=== PATIENT | male | born 1970 | race Two or more races ===

== ENCOUNTER 2020-11-25 18:25 | Emergency (ER) | payer BC, OTHER ==
[2020-11-25 19:18] LABS: Absolute Lymphocytes (CBC) 1.7 K/uL (0.7-4.9); Basophils % 0.8 % (0-1.3); Hematocrit 36.7 % (39.6-49.0); Lymphocytes % 27.8 % (15.3-44.8); MPV 7.4 fL (7.6-11.3); RBC Red Blood Cell Count 4.28 M/uL (4.33-5.43)
[2020-11-25 19:22] LABS: Protime INR 0.94
[2020-11-25 19:29] LABS: Albumin 3.5 g/dL (3.4-5.0); Bilirubin Direct 0.1 mg/dL (0-0.2); Bilirubin Total 0.4 mg/dL (0.2-1.0); Potassium 3.7 mmol/L (3.5-5.1); Protein, Total 7.5 g/dL (6.4-8.2)
[2020-11-25 19:47] LABS: Magnesium 2.1 mg/dL (1.8-2.4); Troponin I < 0.02 ng/mL (0.0-0.045)
[2020-11-25] MEDS ORDERED: NA CHLORIDE 0.9% 1,000 ML ONE ×2 (20:01→22:45)
[2020-11-25] MEDS ORDERED: CIPROFLOXACIN 400mg IV 400 MG/200 ML BAG IV ONE (21:59)
[2020-11-25] MEDS ORDERED: METRONIDAZOLE 500mg IVPB 500 MG/100 ML BAG IV ONE (21:59)
[2020-11-25] MEDS ORDERED: CEFTRIAXONE/SWI 1gm 1 GM/10 ML SYR ONE (22:45)
[2020-11-25 23:14] LABS: Hematocrit 28.6 % (39.6-49.0)
--- NOTE | 2020-11-26 00:20 | ER ---
Nurse's Notes [facility] Name: Heide Harris Age: 49 yrs Sex: Male : 1970 Arrival Date: 11/25/2020 Time: 18:25 Bed 20 Private MD: Diagnosis: GI Bleed/ Gastrointestinal hemorrhage, unspecified;SARS-associated coronavirus as the cause of diseases classified elsewhere Presentation: 11/25 18:38 Chief complaint: Patient states: 3 or 4 episodes of blood stool today. Denies pain, ss N/V. Coronavirus screen: Client denies travel out of the [place] in the last 14 days. Ebola Screen: Patient denies exposure to infectious person. Patient denies travel to an Ebola-affected area in the 21 days before illness onset. Initial Sepsis Screen: Does the patient meet any 2 criteria? No. Patient's initial sepsis screen is negative. Does the patient have a suspected source of infection? No. Patient's initial sepsis screen is negative. Risk Assessment: Do you want to hurt yourself or someone else? Patient reports no desire to harm self or others. Onset of symptoms was November 25, 2020. 18:38 Method Of Arrival: Ambulatory ss 18:38 Acuity: YG 2 ss 22:53 Note Pt voided 300 ml liquid dark brown stool. iv antibiotic infusion with NS bolus. Pt lp1 denies pain. No distress noted at this time. Awaiting transfer. Historical: - Allergies: 21:59 Ciprofloxacin; lp1 21:59 Cipro IV; lp1 - Home Meds: 18:39 None [Active]; ss - PMHx: 18:39 None; ss - PSHx: 18:39 None; ss - Immunization history:: Client reports having NOT received the Covid vaccine. - Social history:: Smoking status: Patient denies any tobacco usage or history of. Screenin:41 Abuse screen: Denies threats or abuse. Nutritional screening: No deficits noted. ll1 Tuberculosis screening: No symptoms or risk factors identified. Fall Risk IV access (20 points). Gait- Weak (10 pts.). Total Hawk Fall Scale indicates Low Risk Score (25-44 pts). Fall prevention measures have been instituted. Side Rails Up X 2 Frequent Obs/Assesments occuring As available Patient and Family Educated on Fall Prevention Program and strategies. Assessment: 18:42 General: Appears in no apparent distress. Behavior is calm, cooperative, appropriate ll1 for age. Pain: Denies pain. Neuro: No deficits noted. Cardiovascular: No deficits noted. Respiratory: No deficits noted. GI: Abdomen is flat, Bowel sounds present X 4 quads. Abd is soft and non tender X 4 quads. Reports rectal bleeding, bloody stool. 20:23 Reassessment: No changes from previously documented assessment. Patient and/or family lp1 updated on plan of care and expected duration. Pain level reassessed. Patient is alert, oriented x 3, equal unlabored respirations, skin warm/dry/pink. Pt resting quietly in bed. Spouse at bedside. No distress noted. Awaiting CT scan. Contrast completed. Pt had 1 liquid BM approx 200ml. Positive for occult. 11/26 02:25 GI: No deficits noted. Abd is soft Abd is non tender Patient currently denies episode lp1 of liquid dark brown stool noted. 300ml's output. Pt denies pain/N/V. 04:09 Reassessment: See blood administration flow sheet for vitals. lp1 Vital Signs: 11/25 18:38 BP 114 / 89; Pulse 140; Resp 17; Temp 98.8(O); Pulse Ox 100% on R/A; Weight 71.21 kg; ss Height 5 ft. 7 in. (170.18 cm); Pain 0/10; 20:18 BP 113 / 84; Pulse 120; Resp 22; Pulse Ox 98% on R/A; lp1 21:30 BP 115 / 80; Pulse 119; Resp 22; Pulse Ox 98% on R/A; lp1 22:52 BP 100 / 69; Pulse 112; Resp 20; Pulse Ox 99% on R/A; lp1 23:45 BP 102 / 74; Pulse 102; Resp 20; Pulse Ox 99% on R/A; lp1 11/26 01:00 BP 104 / 75; Pulse 102; Resp 22; Pulse Ox 99% on R/A; lp1 01:00 BP 107 / 70; Pulse 106; Resp 20; Pulse Ox 99% on R/A; lp1 01:30 BP 104 / 74; Pulse 103; Resp 18; Pulse Ox 99% on R/A; lp1 02:18 BP 109 / 74; Pulse 99; Resp 18; Pulse Ox 99% on R/A; lp1 02:54 BP 111 / 70; Pulse 91; Resp 20; Pulse Ox 98% on R/A; lp1 04:08 BP 99 / 72; Pulse 90; Resp 18; Pulse Ox 99% on R/A; lp1 05:57 BP 111 / 96; Pulse 84; Resp 18; Pulse Ox 98% on R/A; lp1 11/25 18:38 Body Mass Index 24.59 (71.21 kg, 170.18 cm) ED Course: 11/25 18:25 Patient arrived in ED. am2 18:39 Triage completed. ss 18:39 Arm band placed on right wrist. ss 18:40 Kirk Gomez, RN is Primary Nurse. ll1 18:40 Patient placed in an exam room, on a stretcher. ll1 18:41 Patient has correct armband on for positive identification. Bed in low position. Call ll1 light in reach. Side rails up X 1. Pulse ox on. NIBP on. 18:46 Johan Eckert PA is PHCP. cp 18:46 Christiano Tobar MD is Attending Physician. cp 18:50 Blood band [id number]. Inserted saline lock: 20 gauge in right antecubital area, using ll1 aseptic technique. Blood collected. 21:39 Primary Nurse role handed off by Kirk Gomez, JONAH tt3 21:57 Carla Fields, JONAH is Primary Nurse. lp1 22:11 CT Abd/Pelvis - PO and IV Contrast In Process Unspecified. EDMS 11/26 00:[address] [facility] with Rachel Venegas. tt3 00:25 Rachel called back with their GI physician to speak with ELOISA Paul, pt provider tt3 regarding the transfer request. 00:41 Inserted saline lock: 20 gauge in left antecubital area, using aseptic technique. lp1 00:50 Arlin Young called back with Dr. Fuentes to speak with ELOISA Paul, tt3 provider of pt regarding the transfer request. 00:53 Inserted saline lock: 20 gauge in right antecubital area, using aseptic technique. lp1 01:19 Sterling Webb MD is Attending Physician. cp 02:49 Inserted saline lock: 20 gauge in left forearm, using aseptic technique. lp1 04:43 Called to update Rachel on lab results. tt3 04:53 Rachel called back with the hospitalist for consultation. tt3 05:04 Rachel Venegas called back with admin approval. The pt is going to [facility] tt3 Room 736. The accepting physician is Dr. Delaney. Dr. Delaney accepted at 04:57. Nurse to call report to . Face sheet faxed to per Rachel's request. 07:20 No provider procedures requiring assistance completed. Patient admitted, IV remains in lp1 place. Administered Medications: 11/25 21:59 Discontinued: Cipro (ciprofloxacin) 400 mg 200 ml IVPB once over 60 mins lp1 20:17 Drug: NS 0.9% 1000 ml Route: IV; Rate: 1 bolus; Site: right antecubital; lp1 11/26 02:53 Follow up: IV Status: Completed infusion; IV Intake: 1000ml lp1 11/25 21:30 Drug: Cipro (ciprofloxacin) 400 mg Volume: 200 ml; Route: IVPB; Infused Over: 60 mins; lp1 Site: right antecubital; 22:45 Drug: Rocephin (cefTRIAXone) 1 grams Route: IV; Rate: calculated rate; Site: right lp1 antecubital; 11/26 00:28 Follow up: IV Intake: 20ml lp1 02:52 Follow up: IV Status: Completed infusion lp1 11/25 22:51 Drug: NS 0.9% 1000 ml Route: IV; Rate: 1 bolus; Site: right antecubital; lp1 11/26 02:53 Follow up: IV Status: Completed infusion; IV Intake: 1000ml lp1 11/25 22:52 Drug: metroNIDAZOLE 500 mg Volume: 100 ml; Route: IVPB; Infused Over: 30 mins; Site: lp1 right antecubital; 11/26 02:53 Follow up: IV Status: Completed infusion; IV Intake: 100ml lp1 02:05 Drug: ProTONIX (pantoprazole) 8 mg/hr Route: IV; Rate: 25 ml/hr; Site: right lp1 antecubital; 02:05 Drug: Octreotide 50 mcg Route: IV; Rate: calculated rate; Site: left antecubital; 1 02:51 Follow up: IV Status: Completed infusion lp1 02:05 Drug: Octreotide Infusion (50 mcg/hr) - (Octreotide 500 mcg, NS 0.9% 500 ml) Route: IV; lp1 Rate: 50 ml/hr; Site: left antecubital; 02:06 Drug: ProTONIX (pantoprazole) 40 mg Route: IVP; Site: right antecubital; lp1 02:51 Follow up: Response: No adverse reaction lp1 Point of Care Testing: Guaiac: 11/25 20:16 Stool Guaiac: Positive; Stool Hemoccult Control: Pass; lp1 Intake: 11/26 00:28 IV: 20ml; Total: 20ml. lp1 02:53 IV: 1000ml; Total: 1020ml. lp1 02:53 IV: 100ml; Total: 1120ml. lp1 02:53 IV: 1000ml; Total: 2120ml. lp1 Outcome: 00:19 ER care complete, transfer ordered by MD. cp 07:27 Patient left the ED. em 07:30 Transferred by ground EMS to other acute care facility: [facility]. Note: [facility] em 07:30 Condition: stable 07:30 Instructed on the need for transfer. Signatures: Dispatcher [employer] Carter Houston RN RN em Smirch, Shelby, RN RN Carla Fields RN RN lp1 Johan Eckert PA PA cp Moreno, Amanda am2 Lewis, Lynsay, RN RN ll1 Parag Lujan tt3 Corrections: (The following items were deleted from the chart) 11/25 22:00 18:39 Allergies: No Known Allergies; lp1
--- NOTE | 2020-11-26 00:20 | EDPHYS ---
Physician Documentation [facility] Name: Heide Harris Age: 49 yrs Sex: Male : 1970 Arrival Date: 11/25/2020 Time: 18:25 Bed 20 Private MD: ED Physician Sterling Webb HPI: 11/25 19:00 This 49 yrs old Male presents to ER via Ambulatory with complaints of Bloody cp Stools. 19:00 The patient presents to the emergency department with rectal bleeding, a large amount, cp dark red blood with bowel movement 4 times since symptom onset. Onset: The symptoms/episode began/occurred today. Abdominal pain: none is appreciated. Associated signs and symptoms: Pertinent positives: diarrhea, Pertinent negatives: chest pain, constipation, dizziness at rest, shortness of breath, syncope, vomiting. Severity of symptoms: in the emergency department the symptoms are unchanged despite home interventions. Historical: - Allergies: 21:59 Ciprofloxacin; lp1 21:59 Cipro IV; lp1 - Home Meds: 18:39 None [Active]; ss - PMHx: 18:39 None; ss - PSHx: 18:39 None; ss - Immunization history:: Client reports having NOT received the Covid vaccine. - Social history:: Smoking status: Patient denies any tobacco usage or history of. ROS: 19:05 Constitutional: Negative for body aches, chills, fever, poor PO intake. cp 19:05 Eyes: Negative for injury, pain, redness, and discharge. cp 19:05 Cardiovascular: Negative for chest pain. 19:05 Respiratory: Negative for cough, shortness of breath, wheezing. 19:05 Abdomen/GI: Positive for diarrhea, rectal bleeding, Negative for abdominal pain, vomiting, constipation. 19:05 Neuro: Negative for altered mental status, headache, loss of consciousness, syncope, weakness. 19:05 All other systems are negative. Exam: 19:10 Constitutional: The patient appears in no acute distress, alert, awake, cp non-diaphoretic, non-toxic, well developed, well nourished, uncomfortable. 19:10 Head/Face: Normocephalic, atraumatic. cp 19:10 Eyes: Periorbital structures: appear normal, Conjunctiva: normal, no exudate, no injection, Sclera: no appreciated abnormality, Lids and lashes: appear normal, bilaterally. 19:10 ENT: External ear(s): are unremarkable, Nose: is normal, Mouth: Lips: moist, Oral mucosa: moist, Posterior pharynx: Airway: no evidence of obstruction, patent. 19:10 Chest/axilla: Inspection: normal, Palpation: is normal, no crepitus, no tenderness. 19:10 Cardiovascular: Rate: tachycardic, Rhythm: regular. 19:10 Respiratory: the patient does not display signs of respiratory distress, Respirations: normal, no use of accessory muscles, no retractions, labored breathing, is not present, Breath sounds: are clear throughout, no decreased breath sounds, no stridor, no wheezing. 19:10 Abdomen/GI: Inspection: distension, that is mild, Bowel sounds: active, all quadrants, Palpation: abdomen is soft and non-tender, in all quadrants, rebound tenderness, is not appreciated, voluntary guarding, is not appreciated, involuntary guarding, is not appreciated. 19:10 Back: pain, is absent, ROM is normal. 19:10 Neuro: Orientation: to person, place \T\ time. Mentation: is normal. 19:20 ECG was reviewed by the Attending Physician. cp Vital Signs: 18:38 BP 114 / 89; Pulse 140; Resp 17; Temp 98.8(O); Pulse Ox 100% on R/A; Weight 71.21 kg; ss Height 5 ft. 7 in. (170.18 cm); Pain 0/10; 20:18 BP 113 / 84; Pulse 120; Resp 22; Pulse Ox 98% on R/A; lp1 21:30 BP 115 / 80; Pulse 119; Resp 22; Pulse Ox 98% on R/A; lp1 22:52 BP 100 / 69; Pulse 112; Resp 20; Pulse Ox 99% on R/A; lp1 23:45 BP 102 / 74; Pulse 102; Resp 20; Pulse Ox 99% on R/A; lp1 0912 01:00 BP 104 / 75; Pulse 102; Resp 22; Pulse Ox 99% on R/A; lp1 01:00 BP 107 / 70; Pulse 106; Resp 20; Pulse Ox 99% on R/A; lp1 01:30 BP 104 / 74; Pulse 103; Resp 18; Pulse Ox 99% on R/A; lp1 02:18 BP 109 / 74; Pulse 99; Resp 18; Pulse Ox 99% on R/A; lp1 02:54 BP 111 / 70; Pulse 91; Resp 20; Pulse Ox 98% on R/A; lp1 04:08 BP 99 / 72; Pulse 90; Resp 18; Pulse Ox 99% on R/A; lp1 05:57 BP 111 / 96; Pulse 84; Resp 18; Pulse Ox 98% on R/A; lp1 11/25 18:38 Body Mass Index 24.59 (71.21 kg, 170.18 cm) ss MDM: 11/25 18:53 Patient medically screened. 19:30 Differential diagnosis: diverticulitis, hemorrhoids, hemorrhagic shock, varices, anemia. 11/26 00:20 Data reviewed: vital signs, nurses notes, lab test result(s), EKG, radiologic studies, CT scan, plain films. 00:20 Test interpretation: by ED physician or midlevel provider: ECG. 01:10 Physician consultation: was contacted at 01:00, regarding regarding transfer, to [facility]. patient's condition, would like further tests performed, recheck of lactate and patient to be transfused 1 unit before accepting transfer, spoke with hospitalist, DR Renteria. 11/25 18:41 Order name: Basic Metabolic Panel; Complete Time: 20:12 11/25 20:13 Interpretation: Normal except: GFR 77; BUN 26; GLUC 199; CA 8.4. 11/25 18:41 Order name: CBC with Diff; Complete Time: 20:12 11/25 18:41 Order name: Hepatic Function; Complete Time: 20:12 11/25 18:41 Order name: Lipase; Complete Time: 20:12 11/25 18:41 Order name: PT-INR; Complete Time: 20:12 11/25 18:41 Order name: Ptt, Activated; Complete Time: 20:12 11/25 18:41 Order name: Type And Screen 11/25 19:19 Order name: Occult Blood 11/25 19:19 Order name: Ova And Parasites 11/25 19:19 Order name: Rotavirus Antigen; Complete Time: 21:17 11/25 19:19 Order name: Stool Culture 11/25 19:19 Order name: CDIFF 11/25 19:19 Order name: Troponin I; Complete Time: 20:12 11/25 19:19 Order name: CT Abd/Pelvis - PO and IV Contrast 11/25 19:19 Order name: Magnesium; Complete Time: 20:12 11/25 19:19 Order name: Lactate; Complete Time: 21:17 11/25 19:19 Order name: Procalcitonin; Complete Time: 20:12 11/25 19:19 Order name: Blood Culture Adult (2) 11/25 19:20 Order name: Occult Blood; Complete Time: 21:17 [facility] 11/25 19:20 Order name: Ova and Parasites [facility] 11/25 21:13 Order name: SARS-COV-2 RT PCR; Complete Time: 21:17 [facility] 11/25 22:35 Order name: Hemoglobin [facility] 11/25 22:35 Order name: Hematocrit; Complete Time: 00:12 [facility] 11/25 22:36 Order name: Hemoglobin; Complete Time: 00:12 [facility] 11/26 02:43 Order name: Packed RBCs (Additional Unit) [facility] 11/26 03:16 Order name: Lactate Sepsis 2 HR Follow-up; Complete Time: 04:54 [facility] 11/26 03:53 Order name: ABO/RH no charge [facility] 11/25 18:41 Order name: IV Saline Lock; Complete Time: 18:42 11/25 18:41 Order name: Labs collected and sent; Complete Time: 18:42 11/25 18:41 Order name: EKG; Complete Time: 18:42 11/25 18:41 Order name: EKG - Nurse/Tech; Complete Time: 19:10 rn EC/11 19:20 Rate is 109 beats/min. Rhythm is regular. OH interval is normal. QRS interval is cp normal. QT interval is normal. T waves are Inverted in lead aVR. Interpreted by me. Reviewed by me. Administered Medications: 21:59 Discontinued: Cipro (ciprofloxacin) 400 mg 200 ml IVPB once over 60 mins lp1 20:17 Drug: NS 0.9% 1000 ml Route: IV; Rate: 1 bolus; Site: right antecubital; [facility] 11/26 02:53 Follow up: IV Status: Completed infusion; IV Intake: 1000ml [facility] 11/25 21:30 Drug: Cipro (ciprofloxacin) 400 mg Volume: 200 ml; Route: IVPB; Infused Over: 60 mins; lp1 Site: right antecubital; 22:45 Drug: Rocephin (cefTRIAXone) 1 grams Route: IV; Rate: calculated rate; Site: right lp1 antecubital; 11/26 00:28 Follow up: IV Intake: 20ml lp1 02:52 Follow up: IV Status: Completed infusion lp1 11/25 22:51 Drug: NS 0.9% 1000 ml Route: IV; Rate: 1 bolus; Site: right antecubital; lp1 11/26 02:53 Follow up: IV Status: Completed infusion; IV Intake: 1000ml lp1 11/25 22:52 Drug: metroNIDAZOLE 500 mg Volume: 100 ml; Route: IVPB; Infused Over: 30 mins; Site: lp1 right antecubital; 11/26 02:53 Follow up: IV Status: Completed infusion; IV Intake: 100ml lp1 02:05 Drug: ProTONIX (pantoprazole) 8 mg/hr Route: IV; Rate: 25 ml/hr; Site: right lp1 antecubital; 02:05 Drug: Octreotide 50 mcg Route: IV; Rate: calculated rate; Site: left antecubital; lp1 02:51 Follow up: IV Status: Completed infusion lp1 02:05 Drug: Octreotide Infusion (50 mcg/hr) - (Octreotide 500 mcg, NS 0.9% 500 ml) Route: IV; lp1 Rate: 50 ml/hr; Site: left antecubital; 02:06 Drug: ProTONIX (pantoprazole) 40 mg Route: IVP; Site: right antecubital; lp1 02:51 Follow up: Response: No adverse reaction lp1 Point of Care Testing: Guaiac: 11/25 20:16 Stool Guaiac: Positive; Stool Hemoccult Control: Pass; lp1 Disposition: 11/27 06:45 Co-signature as Attending Physician, Sterling Webb MD I agree with the assessment and tw4 plan of care. Disposition Summary: 11/26/20 00:19 Transfer Ordered Transfer Location: [facility] cp Reason: Higher level of care cp Condition: Stable cp Problem: new cp Symptoms: have improved cp Accepting Physician: Doctor(11/26/20 07:27) em Diagnosis - GI Bleed/ Gastrointestinal hemorrhage, unspecified cp - SARS-associated coronavirus as the cause of diseases classified elsewhere cp Forms: - Medication Reconciliation Form cp - SBAR form cp Signatures: Dispatcher [employer] EDCarter Sexton, RN JONAH em Christiano Tobar MD MD rn Smirch, Shelby, RN RN Carla Fields RN RN lp1 Johan Eckert PA PA cp Wadley, Terrence, MD MD tw4 Corrections: (The following items were deleted from the chart) 11/25 19:43 19:18 CORONAVIRUS+MR.LAB.BRZ ordered. EDMS EDMS 20:13 20:12 Normal except: GFR 77; BUN 26; GLUC 199. cp cp 22:00 18:39 Allergies: No Known Allergies; ss lp1 11/26 02:09 01:10 Physician consultation: was contacted at 01:00, regarding regarding transfer, to [facility]. patient's condition, would like further tests performed, recheck of lactate and patient to be transfused 1 unit before accepting transfer, spoke with hospitalist, DR Joseph, 07:27 00:19 Doctor cp em
[2020-11-26] MEDS ORDERED: PANTOPRAZOLE 40 MG INJ ONE (02:01)
[2020-11-26] MEDS ORDERED: OCTREOTIDE ACETATE 100 MCG/ML ONE (02:01)
[2020-11-26] MEDS ORDERED: NA CHLORIDE 0.9% 500 ML ONE (02:02)
[2020-11-26] MEDS ORDERED: NA CHLORIDE 0.9% 100 ML ONE (02:02)
[2020-11-26] MEDS ORDERED: NA CHLORIDE 0.9% 250 ML ONE (02:03)
[2020-11-26 07:42] VITALS: TEMP 98.8
[2020-11-26 07:55] VITALS: BP 111/96; O2SAT 98
--- NOTE | 2020-11-26 22:01 | RAD REPORT ---
EXAM DESCRIPTION: Abdomen Pelvis W Contrast RadLex: CT ABDOMEN PELVIS WITH IV CONTRAST CLINICAL HISTORY: Bloody diarrhea. COMPARISON: None. TECHNIQUE: CT of the abdomen and pelvis was performed following intravenous administration of iodina mark contrast. Arterial phase images of the abdomen, and portal venous phase images of the abdomen and pelvis were obtained. Oral contrast was administered. Axial, coronal, and sagittal soft tissue windo w reconstructions were created and sent to PACS. This exam was performed according to our departmental dose-optimization program, which includes autom ated exposure control, adjustment of the mA and/or kV according to patient size and/or use of iterati ve reconstruction technique. FINDINGS: Thoracic: No significant abnormality. Hepatobiliary: Diffuse hepatic steatosis. Tiny suspected benign hemangioma in the posterior right hep atic lobe measuring 0.6 cm. No concerning hepatic lesion identified. The hepatic and portal veins are patent. Grossly unremarkable appearance of the contracted gallbladder. No biliary ductal dilatation. Pancreas: Unremarkable. Spleen: Unremarkable. Gastrointestinal: Oral contrast is present in the stomach through the rectum. Focal short segment wal l thickening in the high rectum extends for 1.7 cm in length (axial series 501, image 73). No evidenc e of bowel obstruction or perienteric inflammation. The appendix is mildly prominent but with no surr ounding inflammatory changes in normally filled with contrast, likely within normal limits for this p atient. Adrenals: No abnormality identified in either adrenal gland. Renal: No concerning parenchymal abnormality in either kidney. No hydronephrosis or urolithiasis. Bladder/Reproductive: Moderate diffuse bladder wall thickening in the setting of underdistention. Vascular/Lymphatics: Mild retroperitoneal lymphadenopathy. Mild noncalcified plaque. The major viscer al vessels are patent. Abdominal aorta is normal in caliber. Musculoskeletal: No concerning osseous lesion identified. Fluid / peritoneum: No significant free fluid. No free intraperitoneal air identified. IMPRESSION 1. Focal short segment wall thickening in the high rectum, favored a normal contraction . However, recommend correlation with follow up CT of the pelvis, or proctoscopy when clinically appr opriate. 2. Moderate diffuse bladder wall thickening in the setting of underdistention. Consider correlation for cystitis. 3. Diffuse hepatic steatosis. 4. Mild retroperitoneal lymphadenopathy, nonspecific. Electronically signed by: Carmen Pink MD 11/25/2020 10:22 PM CDT Due to temporary technical issues with the PACS/Fluency reporting system, reports are being signed by the in house radiologists without review as a courtesy to insure prompt reporting. The interpreting radiologist is fully responsible for the content of the report.
[2020-12-01 08:12] LABS: C.diff Antigen/Toxin Ag neg : Tox neg (NEG : NEG)
== END 2020-11-26 07:27 | disposition short-term general hospital (02) ==
LOC: ER 18:25
PROC: 30233P1 Transfusion of Nonautologous Frozen Red Cells into Peripheral Vein, Percutaneous Approach (ICD-10-PCS; principal; 2020-11-26)
DX: U07.1 COVID-19 (principal); Z88.1 Allergy status to other antibiotic agents
CPT/HCPCS: 93005; 87040 ×2; 87045; 85025; 80048; 36415; 86900; 83735; 86850; 87177; 82274; 85610; 86901; 80076; 87046; 83605 ×2; 85730; 87209; 85018; 85014; 87324; 84484; 83690; 84145; 87449; 87425; 74177; 99285; 36430; U0003; Q9967; J2354; C9113; J0696; P9016; J7050; J7040; J7030 ×2; J0744

== ENCOUNTER 2021-09-08 23:30 | Emergency (ER) | payer OTHER ==
--- OUTSIDE RECORDS SUMMARY | 2021-09-08 23:35 | XMS REPORT | Continuity of Care Document ---
:1970 Author Organization [facility] t Address [address] [place] [address] Care Team Providers Name Role Phone JAN SOLANO Attending Clinician Unavailable Rhett PAUL, Jan Attending Clinician [phone] Hugh PAUL, Lasha Attending Clinician Clarke Roberson MD Attending Clinician Andrew PAUL, Cassie Black Attending Clinician [phone] Erin Smith CRNA Attending Clinician [phone] Juliana Brambila MD Attending Clinician LIDA Attending Clinician Unavailable Liza Attending Clinician [phone] RHETT Admitting Clinician Unavailable HUGH Admitting Clinician Unavailable LIDA Admitting Clinician Unavailable Payers Payer Name Policy Type Policy Number Effective Date Expiration Date S bhanu [facility] [id number] (PPO) Problems Condition Condition Condition Status Onset Resolution Last Treating Co mments Source Name Details Category Date Date Treatment Clinician Date COVID-19 COVID-19 [facility] GI bleed GI bleed Disease Active [facility] requiring requiring 00:00: Medi mic more than more than 00 Cent er 4 units of 4 units of blood in blood in 24 hours, 24 hours, ICU, or ICU, or surgery surgery Allergies, Adverse Reactions, Alerts Allergy Allergy Status Severity Reaction(s) Onset Inactive Treating Comm ents Source Name Type Date Date Clinician RAMÓN Allergy Active [facility]ching [facility] Ciproflo Propensi Active [facility]ching [facility] adverse 00:00: Medical reaction 00 Center s Social History Social Habit Start Date Stop Date Quantity Comments Source Sex Assigned At [birth year] [facility] 00:[facility]00 [facility]00 [facility] Center Medications Ordered Filled Start Stop Current Ordering Indication Dosage Frequency Signature Comments Components Source Medication Medication Date Date Medication? Clinician (SIG) Name Name pantoprazol 2020- No 40mg Q.5D Take [address] [facility] tablet (40 [facility] (PROTONIX) 00:00: 23:59 mg total) M edical 40 MG 00 :00 by mouth 2 Center tablet (two) times daily for 90 days. pantoprazol No 40mg Q.5D Take [address] [facility] 11[facility] tablet (40 [facility] (PROTONIX) 00:00: 23:59 mg total) M edical 40 MG 00 :00 by mouth 2 Center tablet (two) times daily for 90 days. Vital Signs Vital Name Observation Time Observation Value Comments Source HEIGHT 2020-11-27 10:46:00 169 cm WEIGHT 2020-11-27 10:46:00 69.627 kg HEIGHT 2020-11-27 10:46:00 169 cm WEIGHT 2020-11-27 10:46:00 69.627 kg Systolic blood 2020-11-28 11:16:00 119 mm[Hg] [facility] Diastolic blood 2020-11-28 11:16:00 61 mm[Hg] [facility] Heart rate 2020-11-28 11:16:00 102 /min Patient was up [facility] getting dressed [facility] before vitals Body temperature 2020-11-28 11:16:00 37.72 Ramona [facility] Respiratory rate 2020-11-28 11:16:00 18 /min [facility] Oxygen saturation 2020-11-28 11:16:00 97 /min [facility] in Arterial blood Medical Ce nter by Pulse oximetry BMI 2020-11-27 10:46:00 24.38 kg/m2 [facility] Body height 2020-11-27 10:46:00 169 cm [facility] Body weight 2020-11-27 10:46:00 69.627 kg [facility] Procedures Procedure Date / Time Performed Performing Clinician Sour e POCT-GLUCOSE METER 2020-11-28 11:22:00 [facility] POCT-GLUCOSE METER 2020-11-28 07:31:00 [facility] CBC W/PLT COUNT & AUTO 2020-11-28 05:12:00 [facility] BASIC METABOLIC PANEL 2020-11-28 05:12:00 [facility] (7) [facility] CBC W/PLT COUNT & AUTO 2020-11-28 05:12:00 [facility] (CELLAVISION MANUAL 2020-11-28 05:12:00 [facility] DIFF) [facility] POCT-GLUCOSE METER 2020-11-27 21:33:00 [facility] REPORT OF PROCEDURE - 2020-11-27 20:30:[address] [facility] REPORT OF PROCEDURE - 2020-11-27 20:25:[address] [facility] TISSUE EXAM 2020-11-27 19:58:00 Leo Brambila [facility] UPPER 2020-11-27 19:20:00 Leo Brambila [facility],SCLEROTHERAPY [facility] COLONOSCOPY 2020-11-27 19:20:00 Sheikh [facility] UPPER ENDOSCOPY,BIOPSY 2020-11-27 19:20:00 Leo Brambila [facility] POCT-GLUCOSE METER 2020-11-27 16:11:00 [facility] US ABDOMEN COMPLETE 2020-11-27 13:00:00 Rafat Medrano [facility] POCT-GLUCOSE METER 2020-11-27 08:15:00 [facility] CBC (HEMOGRAM ONLY) 2020-11-27 05:41:00 Odin FernandezRachele [facility] BASIC METABOLIC PANEL 2020-11-27 05:41:00 [place] [id number]) [facility] PROTHROMBIN TIME/INR 2020-11-27 05:41:00 Hugh [facility] ABORH, MANUAL 2020-11-27 00:17:00 Misty Howard [facility] HEMOGLOBIN AND 2020-11-26 21:31:00 Hugh [facility] TYPE AND SCREEN, 2020-11-26 21:31:00 Lasha Fernandez [facility] CBC W/PLT COUNT & AUTO 2020-11-26 15:12:00 Rafat Medrano [facility] CBC W/PLT COUNT & AUTO 2020-11-26 15:12:00 Rafat Medranoil C [facility] BASIC METABOLIC PANEL 2020-11-26 11:47:00 [facility] HEPATIC FUNCTION PANEL 2020-11-26 11:47:00 Lasha Fernandez [facility] HEMOGLOBIN AND 2020-11-26 11:47:00 Hugh [facility] D-DIMER 2020-11-26 11:47:00 Hugh [facility] C-REACTIVE PROTEIN 2020-11-26 11:47:00 Odin FernandezSusan [facility] FERRITIN 2020-11-26 11:47:00 [facility] IRON, TIBC, % SAT. 2020-11-26 11:47:00 [facility] Medical Pat reaves REPORT OF PROCEDURE - 2020-11-26 00:00:00 Provider, Default [facility] ENDOSCOPY SCAN Scanning [facility] Plan of Care Planned Activity Planned Date Details Comments Source Future Scheduled 2030-11-[address] [facility] 00:00:00 malignant neoplasm of [facility] colon (procedure) [code = 543248448] Future Scheduled 2030-11-[address] [facility] 00:00:00 malignant neoplasm of [facility] colon (procedure) [code = 423396432] Future Scheduled 2020-11-15 INFLUENZA VACCINE (#1) [facility] 00:00:00 [code = INFLUENZA Medical Ce nter VACCINE (#1)] Future Scheduled 2020-11-15 INFLUENZA VACCINE (#1) [facility] 00:00:00 [code = INFLUENZA Medical Ce nter VACCINE (#1)] Future Scheduled 2020-03-[address] [facility] Test 00:00:00 (12+) [code = [facility] Center DEPRESSION SCREENING (12+)] Future Scheduled 2020-03-[address] [facility] Test 00:00:00 (12+) [code = [facility] DEPRESSION SCREENING (12+)] Future Scheduled 2019-12-15 SHINGLES VACCINES ([address] [facility] Test 00:00:00 of 2) [code = SHINGLES Medic nd Center VACCINES (1 of 2)] Future Scheduled 2019-12-15 SHINGLES VACCINES ([address] [facility] Test 00:00:00 of 2) [code = SHINGLES Medic al Center VACCINES (1 of 2)] Future Scheduled [address] [facility] Test 00:00:00 (procedure) [code = [facility] [id number]] Future Scheduled [address] [facility] Test 00:00:00 (procedure) [code = [facility] [id number]] Future Scheduled 1988 DTAP/TDAP/TD VACCINES [facility] 00:00:00 (1 - Tdap) [code = Medical C enter DTAP/TDAP/TD VACCINES (1 - Tdap)] Future Scheduled 1988 DTAP/TDAP/TD VACCINES [facility] Test 00:00:00 (1 - Tdap) [code = Medical C enter DTAP/TDAP/TD VACCINES (1 - Tdap)] Future Scheduled 1987-12-15 HEPATITIS C SCREENING [facility] Test 00:00:00 [code = HEPATITIS C Medical Center SCREENING] Future Scheduled 1987-12-15 HEPATITIS C SCREENING [facility] 00:00:00 [code = HEPATITIS C Medical Center SCREENING] Future Scheduled 1975-12-[address] [facility] Test 00:00:00 0-64 YRS (1 of 2 - Medical C enter PPSV23) [code = PNEUMOCOCCAL VACCINE 0-64 YRS (1 of 2 - PPSV23)] Future Scheduled 1975-12-[address] [facility] Test 00:00:00 0-64 YRS (1 of 2 - Medical C enter PPSV23) [code = PNEUMOCOCCAL VACCINE 0-64 YRS (1 of 2 - PPSV23)] Future Scheduled 1974 COVID-19 VACCINE (1) [facility] Test 00:00:00 [code = COVID-[address] VACCINE (1)] Future Scheduled 1974 COVID-19 VACCINE (1) [facility] Test 00:00:00 [code = COVID-[address] VACCINE (1)] Encounters Start End Encounter Admission Attending Care Care Encounter Source Date/Time Date/Time Type Type Clinicians Facility Department ID 2020-12-24 Inpatient ER [facility] [id number] [facility] 12:08:27 JAN RESTREPO 2020-11-26 2020-11-28 Hospital ER [facility] [id number] 08:25[facility]00 14:39:00 [facility] 2020-11-27 2020-11-27 Anesthesia Cassie Morales [facility] [id number] [facility] 19:30:00 20:28:[address] [facility] 2020-11-27 2020-11-27 Surgery Sheikh [facility] [id number] 17:35:00 19:00:00 Leo Andrews [facility] 2020-11-27 2020-11-27 Travel [facility] [id number] [facility]00 [facility] 2020-07-16 2020-07-16 Outpatient [facility] 2020 [place] 01:02:00 01:02:00 [facility] 2020-06-13 2020-06-13 Outpatient [facility] 2020 [place] 04:12:00 04:12:00 0330 [facility] 2020-06-13 2020-06-13 Outpatient Liza [facility] [id number] 00:00:00 00:00:00 Ayala [id number] Results Test Description Test Time Test Comments Results Result Comments Source Tissue Exam 2020-12-07 11:53:09 Test Item Value Reference Range Interpretation Comme nts Case Report (test code = 104) Surgical Pathology Report Case: [id number] Authorizing Provider: Leo Brambila MD Collected: 11/27/2020 07:58 PM Ordering Location: [address] Received: 11/28/2020 08:25 AM Service Pathologist: Samir Wilson MD Specimen: Biopsy, Gastric ADDENDUM (test code = 3381) l0vrgSYqMIXooTW3GwVpMBHox2cqk9LkmJHsrMN hHGnqfLNexrPvyl50sKR2kR94ZI5nUGAiQvA2IB DqmtN0Mgx1WJLkTPCooPFyZ942t0pic0fdfnBcd SJ3eOezYQYxqperFfA6TAgtQXLqsppfFYj6LAyg CHWdoVL1GGHnsIEoI8AuURHgSP2hans1NBI4LUb cGYYuEmX4KMMauGWuGCOskStlRTpze435BKK6Ed LxYKAaicGvgBwfjF7nXzUjEOOAdX39ph5suVMrc kNmm9JfeQOneSTwYnCapQIvOBCpyrAstt1vCYHl oqQgeK0bvxGCLLIbhuRiUBgxaZk2WQ2aODAwyk0 = DIAGNOSIS (test code = 3220) b6ddvAZdVZJsn3pmYBZlfKXkAsVnInWuXmKiUz p cdWMxIHtccnRmMVxlcGljOTYwMVxhbnNpXHNwbH OqU6ZftitgQMnbKY1oQB9hsNrxdTVggTTgIGUcM nJfy8prm171iJVtf2quCNRIwukupTp3oViwL20o b2E8UjcxQ38pqHQbUZC3JTGnWUCuhMCaSADsWDP 9RYWmnDUaH9maMQRrIJ6yxbniULxzYJnkYKDkkX U4HTEoaTKwO6TrRGKpSIusKQKklhh0JkZcOs5va GVyeTcyMFxwYXJkXHBsYWluXGZzMjAgUEFSVCBB BIfAH9IOHFFtWssGNCZMFcxfVUVkTr5WQLoVRBK TP0UBJfAkM4eFD40UEqBLHWOXPfuRPSBrMEErwb EUWUyTNKpCDZAMZ6SqMF7RSQPIQB3FEGDAFPOHU ZuNK8lLOHVGKAWMAXGHINFkFL8NQZkUYzMUOGGR AANYAmCOOr8IEL8szWYpWTeCYlBUTI7cK6SBKuI QOHISANoIOGSWUxNBBRiEW82GVPICQCGkHAFgRZ VJGQVSQ0YRUkygWRGyXL6FRL5GC6HUTR6xEp0RD KtYLOlCY5EZI4EOWbVTFsQIAY6HHG3OFYPYURIL ZkUMCVOBWmNPF9pPL3gjQZvcQIE5a4lggSSzPXT rxJMyDFVdELmzfuAeSUGrHxpxbyxrKCJmNPY6ss CvRPSyEDhsGFRoVNbvZo7urNAyfJkiDzYtXQImr 7nbgcQIqdsjrSm1f5owHXHcQqC2wLDgQXqcC0ua ezEcxLHvYXBvQRy6oH74CAHiwU3adTXfQZocljE bDmV5YTcyWYPuXhW7GKHbhXHcFAMkX0dyWIVkHN qcGQLdNOxhkZLoPBB7tGlly0M0vKWyhJXryLqcY kZsGlQvAjPDi2UuAJg5oTqeU0PzARRlPfH6ePPd HBGtMGjvJIIoUFNfbuG1wY49XGtwplF4bRAoi8Q dk64fp090iF9vsEMiRWZ9JNIjOVJnfUFlWNMuQA U4SWRrzDYlZ7rnTSOgKX6uawxhEOejUPcpGBZwq BC9VGOuaPZqJ4UnEFGpJTosBDTywky6EiUhFo2i dRQskCvyYAovt0cnd9agcGWkSdf9UKOnOrNhYui xTAbtv5Moz1bxMPJqpw9lAKF3lMSzoPcjj8G7fI LiGYMkhLMrYGAnJU9lbEFmHTLdeK4hapvyWONjD dWbvrptJATqyTovmaFiDm6gzLkkDZI4UAgeM0cz wT8fHoP5FUpzV8gueJ4jBGw9JDdyWEZytOL0ziM 6LRWahVKpN8FfrX2hKOHkXB7hlee7h9saZCZ7SF qbEQCzRjQ4ovK8DWCcyFNqSFGeoLpcBYtri848G XO6CiTsSHGsn4UiN0EubAwhD32kkEwwE55mTFPd yVvkgN8uhIkrsM1pNtDaPxXiXXawmCvhIO3xEIM aM3tmhAKeKSJvDORjB8ysWbScaR6npJqpZGwgzu VaTAOfMze6IQWzcCXlMXBsTzn3YCFqBGQtT91ld rgmXIV8dG3xm9zjl6YePOklRKR7ACUmj86lDGva ywM9OSjfGb67LVWhIYU5UJxqUVR4fN== CPT Code(s) (test code = 7257) o0wmwJZtLYCocYL4RsAwMBWsq9oxs0LijDSu cGF sLIdxuSAnbaRzvq52qQQ9mZ73AF0jQXXaUoY0OD OjuuZ5Zyf1FIUjAHHxmEDaT011m9nso8nznwMud CU6iCpzWJNgeiwyEkX9LAdhBMOenbkbXSp0WPjq EVAuvZQ8QCRbbPSzV8HgCBQcDV6zagy9SYT9IGh rWBBeHzD3JRFmfPZjGMIfoVloVLsrf465CON5Cm HrJMVhxkQpgPgckZ9xAfGyDPR4SIPjVBhzBJulB VPwXFw6CrOvKANwks3= CLINICAL HISTORY (test code = 9201) k6rocRUnRTRsuTI3PxDaGQBhs5ptf8C sdHBncGF vTNrvnMXzcsNgwe26qYZ7zU59UA8oLKAnLwD6XX PrtiT4Kbf9BXVpIBWmiVGkA767u0pjh1qxpvFyi ND4GZIyUDPyX5PqNS7lJMTiaBTzR82qoKGrEQD7 HRTuSZGdoICnGKXoNWE7VRHuqEJaW3wzWTIjTM7 dzsdxPHtzVQdkVVIkgMM8FHSysGLuS6UjITYdQG adPRSsukg3XiGpPo2koNQqzYusPEftDSAuFJnkT VxyaTFcbGluMVxwbGFpblxmczIwXGNmMSBHSSBC TEVFRFxwYXJ9 SPECIMEN SOURCE (test code = 3377) y4rivTTxPGCkcDR1YiMtNMYxo3uaf8Ef dHBncGF dOCjylFNtbjZojt19xYT2bY26LL6mZLClYlN6PR WcgsA3Dwm9CQLtVYGsxQImC547r5nks4jobzJrx LD6LIYsLKOaS7OjNR7oSSBoaYQbY7vzINUzGTTz D3RbJQ2gVSCcWuo5EYP2SOq1QDGpwXXrugHdTuZ wGLIyvUOirVH5WHXuOM4jsxmeYPzwQKafQFIozm Q1KQWboVToG7TgQDDgAL2gybxpWTD2SXrtPWGiG IH1CoJzOYEwe3Tditv1WoBgeFQbSPfrjZRmmqrq DAandjIgiHaviP9sTvEaFYqeJpPjF2xhTbPrcPX eP6RjyMIfM6ccNFI1 GROSS DESCRIPTION (test code = 3366) x1oklWBqIFXhzOJuVeUxUJIfMMVhr6 lcZGVmbGF lFsLfWxHgLzHkNagbcMJrVVOzStJrl8ikk921yG Xez9nzBYVsVaT4zDOyZKAekDIyB415q6dyh2osw hKcuET1LAIpRJG6GOuotxWmpcG1UTpdyLApEuF4 FKcggvKoAUnaigMakcMjAfl8YNGpL712MLR8iEe jp6oeLTX3JSNiOVGwVnIlEg7trCRhW058WLBqCT KFFXTyfHh4IFEibmJhliKfbBSQg734U698t3ikF CXfhmNvmLmUdtwur1dsA618FBLaeLConfXmJhAi FDOtwGVylZU8RNMfSA0rhpayPkRbFZ7uycdpNsB eAB9ubww4WfCnCQ5vrxstFeYeGPrkPKKyapklNO Eux2SrmshcYE4wJ9Kvx7Y0yK4qcJGtVEIlnWCpR zBoUKAtjr1bsSOjWWwgm0ZoNGE8wsU7oMKczOCe MFReBN51Jdufr7DgQsxbBOA5VWAdyhTxf5Agv3s zLvXopiCqU5wzX6WeRGHyCAOwWAHfLdZoreNhk0 Xcc2UqtSGslQo6p1wcYWUdIWRmwMytd6yiJFQ8W WTvK2I0tHSzh2liNFliLRIhlTE8aqssBEjkPSDa jeA3ekorJVdiRPEjfTS7ipqzTByhXZNyTzT2ewx zZXkwJINhMHV1QWhxp297FMT6YJmjRghlMQxjTR BnbmNvbnRccGduZGVjXHBsYWluXHBsYWluXGYwX GBdChQkzWggaMapgO6jHbUySeRtGExjLA7tNZKn Z6sdxXVeHDNlFTFxJ6yiJnOopQ5etRydKUgifrX gOVNhH3BwcwLnDSwzXTPdkq2obNviLFdyTjAjGD EkpMhqKGJqsVpirdTeigMwZC5rCVKiH7Sll0Gam 95zlyTaRcAuJAEnHSQpW0KppQFuRnJljS5ln3ts IGZzBGA3ZBXknnLje5O7WMPyf6Q6KMWnqoNnnBA diNXumONqj4DnvM4oBFApMSSbOIOzSyUkcTNtfz EcwwAavJBjdTBpdN6nwjEvx22bq7smN8ecLKCaJ YTxqNZoguBqQSZoKLUwsTEasGK5HBIfhA0zuP24 pnMyadVCNJ3teBObFMEpkkCQaYmjkuXHeel3JJq sZXMsIFBBLCBIVCAoQVNDUClccGFyfQ== MICROSCOPIC DESCRIPTION (test code = e3eqwOMoWTUjvUM2KrKgOCAzn8sqd7 BsdHBncGF 3371) iJBisyHNoljAzml19sAI4jY58NM1nTWCcQaO4EU IwklH6Kyx2RSHdORRfaLEqL904g0dtt4vbvqCfw DT1tClrVVUxduzmBlF9LLhbULFrnqvnOLo0TBaa RWWhwQZ4KQKiiAQaW5FlETAzSK9emhh5FZX2ZHz kYULhSdN5HXEktTFvQVIkhMyuVQchz811TST5It XhAGUqvaEznJyjlR0kVfDyPAUnIKWxf0VoLVJsw GFyfQ== SPECIAL STUDIES (test code = 3376) s6wqwGNoEBGacNM2IwRjRUXmx7hxc1Cc dHBncGF sTGfxiZZvmjFzlj92mMT4rH82PJ4uJDCxUpC5HX IcvaU4Avb4MANcUAPowWXcY786GMSgPNEffKudk hn4yN80TFWoaM1sdTDaXDiknqKgSPwgfoRkqoBh Bpl1BLD2tQgtVIVkonqbUtV8BIwaZEZovrzmBLa 7EGolTGRypAG0JYZguLZlT8IkFWHmDY5jsdw0HR T0IBrfWKBoKvO2XFAqcVJoCNKfcTntQFppn265Y XN1JwUkQHJzbwOciCgsxO0jScNbIkBxAgvvSxGj MQpaYQldyFVacJVvxKW1jC3sFD8aTCXndQNwZ8G tVIFnfgFdxWHfNBS0wSBpxBLiMD5zVAmziLKxd9 gpz0BgH4qcpFbcfGK3SJ8aJLPxZYReDAcrr1Gka G5sUbrlPJJwMvdPC4edLFDzBMbAMmFRYD5cD2QC HmFSTUTCUOqEW57NAGLTXSZniDDvANHrljAce3a vA9oaPBLxVGN8LJ3gwcCzNsGxUL2uyX56q3Rum5 3mx30osM6evDGmfgUwI65rkLBoiRNec3GcZXEns qAteFR1LVBpXQszusvtw6i5tUU0bOFckBTleAO0 uCPutWPgKBONrEImHAMbn075tk9mFTLcjJFkeqS zdQ8lZImrsunxiPNoWD3cTXSbUPYnTZPiJQ62um XdXW3cqGOsf4njdnZupGUoh1XixOY3PTIfpBVgn zfbPx0oJF74EKUmDYqanG5hbFXrfvOjHC8cCD5a V5H2kDXvSCVekuTak0zmBBvmDN3uJDJojUbqJbi lXEAkWLMaxrZhzPG4XDUdpZSwTTEvrGByROdxgQ Buw0did1NpX7jwwVyfkNW4UDOvH7reaVEvjLG7X TD6mL0tVXkpufKrEKSar2UqMGPtXJZjJbD0yU0j GFZ7SvTGvVmkHEW6BqP7PNbrRJBuXM5wGIiyXVx kD1SzrINhPQVQBMQde1qtX7bjDFJtj1HubK0cmD A6bGOhBENecYF8KHCcMMV2BHzwkOPmCBLvODZco ZBlcZBlSy6sdQWrQ8WjZ8vzicEzcWSzdZH9xDGh UHyrjcKcNDP2RGZkyC9rPU3aGEMdvZIeKP8oeDM wBGOcCUThJVIuECBws1DhZQEkcx25QGReRegjwC ypVOEuTk3mRm8fAZBecbDdTGM3XbCWFN5fcezyy DQcoLdwdp4uQReeVJHQOZUjUPOeDDL2QHMeyB3s YPC1gBJ3HAB9U3dqQ0ioFSTwdaZrLW8jUFIkgXJ wlhWmHIzeCC3qvVOoKMHyy0RrllnkAPPpUUC6BR C9RQjcIINpJNBuUz5vKQQyaY3jN6OwTXX1fbSrf 0JxDqUNuHDtmT83yCRfyy67UBZmPCLkB6JhOOZf FJIdZAybxiOykFsiPIWty51sfFCnbfYgl6PgpqV aHJGuW6jrFRNpzMVzcCMci1EmtM9rgOQzeeTiVB I7aATrBWNnvZ2vEICjdLtdUDXplP0cI7VfVOeaZ z6oWMVidzgzQV4rzv77TM6ereXtUB0kwsShCY54 mzUaTmIwAKa0WAfGQJvDMCa2OVIhfmYpcQTvlSQ sOQAwwN2zpPBeSb9ipLYxcJqlNUAdkDCdUGazjK kuA6tyigkgTJmrwPRsh8RjgC0ouMH2VIC5oW3dW lxwYXJ9 Gross assessment was performed at (test [facility] enter, code = 2777) Department of Pathology, [address] [place] [address], Technical component was performed at [facility] er, (test code = 2778) Department of Pathology, [address] [place] [address], Professional component was performed at [facility] enter, (test code = 2779) Department of Pathology, [address] [place] [address], [id number] 11:53:09 Test Item Value Reference Range Interpretation Comments Case Report (test code Surgical Pathology = 104) Report Case: [id number] Authorizing Provider: Leo Brambila MD Collected: 11/27/2020 07:58 PM Ordering Location: [address] Received: 11/28/2020 08:25 AM Service Pathologist: Samir Wilson MD Specimen: Biopsy, Gastric ADDENDUM (test code = [id number] 3381) Uax6fha6GoxSNppYKmDTit xRXymwSwif01fUS0fH59UW 4iFPEuVsO6XWNsvxW2Yvc6 BDZjHWAhiRNaM860w8ahk6 zlaaZboRR9kWyeAPKononz PiD9PPgnOVJltlwxDUa6JZ voPMNvsFC9COJkkHEbZ1Vd XVDhDW6qlez9VRQ4DUwvUG RlGkI7XTYkfYPiTSGniIaj WEils018HAN3GrBjNLKqpb TabRhwwO8jFlRpKZARgH46 uz2trHKvyaLqy6EbiXYrdQ EaDuLlkKUsUAOmavXczc1l XMZlcmDlwA5ihrSKCGLuyt IhHHsdvJc7MZ8gRDNoet8= DIAGNOSIS (test code = z2demXUuHVDfc2ccBTLuvG 3220) FuZzEwMzNcZnRuYmpcdWMx IHtccnRmMVxlcGljOTYwMV betfFiDBUpbIKqY9Axjvmy XQbbKM6oKN2ojRqisVKnaL CqUPYhLtBgo3qni168pZBg e7bcQOBBqyhlvWq4dOvrC1 0pj2W1WchvJ60feUXiARA0 NRSxTREpmLBrMVOpDDN8IA XfgFKrO9lsUEVdGO0iuonq ZBzoHPytNQZwmQJ2ONWieI ToT7WmYITkDGejZMAbyyg5 CfAqKh2brAZemKudDPctCJ JkXHBsYWluXGZzMjAgUEFS GKNYADnQA4YKGTWmAmfUNS APWbjyYLYiTn9ZFWjIKERC H9NSSbLuK3xVB69WRyNFTY NUUklUSVMuXHBhciBORUdB ZXbOPJEED8WtLU7XNXREGD 8NXULCVSBLBXzVO8iWYOAI JYKPYHRSIVEdUH2ZWVnQWi NFIFDLZLMQQlLDAn0RIK3k iWQaYApKItJBLU3mM2OVQh JZIFNUQUlOIEZPUiBIRUxJ Q89EEEYBZHQjPLAkULJHBP TDC6EVFaunUOBcHR4XSP7Z H1OIXM6ePa3XWRmAQGoEE9 REE5NCIkKKEfVAHV0QLB0H LCBBRERFTkRVTSBUTyBGT0 tRJ1woQTmrBLN6c6ojhXGo XHNzdGUxODAwMFxhbnNpXG RgBsimgcffHUQxCOL4yhZr MXAaYPfnSDKnZTxqIa1naF WliLzpPoMgSKAow2fagvPR iafnpSl8i1hhFSBvVgQ9oP OcPUuwB8lizzKjfVUkKXDn KVt8oR78SBSxwU2xkLNqZG yypkDmQqO8DZkpIERpBuJ2 TDVayCKrTXJuK0vzJRPdNC acLUFtTQjppCOyTCG6jQdd a9R5rAVclBMqvEspWwOlJj BlZkQBm0IaYWd2rYhcK7Il GJBtPuJ7zWIeVLMvDZudSS JmRLBbzvH4rX68HValjpJ7 uRHkm0Tqh24cm229cZ3elR SdCZD6OUGtEFUmdCQaSYGb TWL2DUSbgRYsR8xdTHWxXM 4jdrfsTDtvVQwhOYTizIO7 MTIulENaZ3PwLXPfJWtjXQ Zhffc0CuDoRr2ipOAcxBmt PHmev7yee6fxcDZfBaw2SY NeLsJtSitcTCrlb6Tia5jh APGryw6dGGK7jVDvzHwhy8 I7bAWoVULdhMLnLTDbPY9h rPMaNYQjaR3miegkHDFlDm EeuitiCRUkcVmosvAuHv8y aEwyDUF9NFpkV6dvmZ8lDl I8DBacH3khfX8xOJw4REeu NKNtgTA9vtA1MZApeWImG6 EcoZ6aDSKqJS4ipvr0k7vu HVH4KVscSDXqMvT7voC7ZZ OrcQYjZVVfpEpaXGynh764 AZA4PlKeOBRul0VyP1PsrD tzD59gpYguF16fYKJutSqv yL5ytUbsuB0jExZbWzQkQQ xigFyhRX8pTJGzX5xgeJCa LVSjUGMdQ2igQmIwwE7nkB ydVTkwhjReVXWbWyd7XBWm cWYqUIXgQvv6HOOhWFRdZ9 7hawifTQC2aZ8oz1xio0Nj AIgmUDK8EQFka82hEVqtpe O6WJqzKd56ACMxGLE9RIuh YXJ9fQ== CPT Code(s) (test code x7gplEZqUJAhbGC7YmZkLI = 3357) Rpn4xtm9FiaXWmxSWiWRaq tXGjxtFpld29mSJ5mM57FZ 1vHBOjUtJ3OPXffbZ8Vwx7 BHSdJNEtfENkB853n4ses0 sqinRwhTT6eRxkQDFudcvd GoC5GRvfRHEjmagjNBy0SF seORQxlFD1JRXcbSGrY6Nd FUPzTQ3jify7SNS5ATdyQD WyAsR4LJEdbKCsXIDrpFbo NGchq766ELS5BeWdVZZenk FerQttuJ2lYuTlXJG5PTUc PAbvXDfbTBAxNFg2GkWbVH Bhcn0= CLINICAL HISTORY (test h4tfdALaQVYteAM6RrPeGD code = 3356) Zgq5obg7IfhSUepDVjQBao qGDqfaRidh79sDI0pV43VD 8hKRKqEmY3GNMvbxP5Ohj9 XTGmQCCsnNQzV247i6vyl0 ogkmKjfRU1LULdFQDzP7Wl OX2bNHMulPSzS13ysIUxDR V7LQAkFPGtaDPpRDYwUCI2 KWPlpECiP5gtRRBcHO2ihu fqAKwkQYjzLMVvlQY3DKLz iYFfH6GlQMIsOBrhORMmtu z6RpVxOw6lhUCtqNueUYuh YXJkXGxpMVxyaTFcbGluMV xwbGFpblxmczIwXGNmMSBH SSBCTEVFRFxwYXJ9 SPECIMEN SOURCE (test u4qbqIRgRVTylIQ8YdDkMQ code = 3377) Zpz7qcm5PkmWWbdXGnAHcq hEAblfQuhe74dFF8aM73TT 8fAJWyQnC9WDGavjO7Bgt2 SUMoLUGeaMGrI932u5vpu6 kekqQmzCQ4AWNuYHYaA1Vm TG9oYHXvnLLqT8odAZAmBO WmI3LuXS3qUTPpNkp8ULA4 OAq7UPKvaFNhgmPgApFlXF SkuTAuxXU3VEAwGU6xvkyo JVwpDKchIHBjxgL4VJIehF GzC1JwFKSoNL0wkgrlAIR3 VZphTNUiTQK9YzEsPWGfp6 Iztsg9DcPxzZVcFJxdoFFh fvdiBFnktuYrxQpygF6wVd TmYDpkBnNuO3ejRiQqsOLf O1ZsrAWtB0tcDCL2 GROSS DESCRIPTION (test l2pmvGXsRBAuaPRaZmFoQV code = 3366) YhGBOme7txNEEoxXLwInDs MzNcZnRuYmpcdWMxXGRlZm Hym9bkn266wWEjq7vdNXNx UkW3yMSrUNOziKZtF414n2 mcq1vkfvLcvZS1JLXhMMT4 TJrttmWfguR7RJglzNLdIz F3YVlnvuCmOKnigqLckaIt Lnf4QVPhP032HEH7cOrur1 jjCMF3YLReFDDeTeMaUv3b tRGqR101JNLvAVLLFARofX f0AQNwmeCytdJixWZZl868 K281o7psPCQdpvEojKrHde vsh2uzB106ZZKmpWAnwzDe CiLyZGIydPVjgYQ9MAUjOF 6jkdvkBeAcUD0rorjhWvJm HR4txvf5LdHtTC3ztahbOn BnRAhuJSQkbncoPGBzh9Wj jsrtWG7oA3Grx4N7kS7pmI CbIEVsiEIlWmKqUYQgsx6x yCCfLJqzv0RkDLG5xwU6gO DuvVRoUQNoOY35Okeds3Ns WgaqXMP8AQIyyjXhn4Bhw6 ydVdVovrQxM4tpW8AdTCYf RXBuNPOoKhTezfIbh6Dbc6 SamNVkkWx4e2klNCExNGUm wZfbo1tsBTN0YNWqN4W5wV Lhk3ujPLxmBXDsbRO2aswz SVudZNYzooW7isgvTWcrDP MhyUC2gragHMhzTBIeUuB7 swdzYJwdCLOnOAP9QOicm5 99HSJ5YTvdJuedZXpzFPEl bmNvbnRccGduZGVjXHBsYW luXHBsYWluXGYwXGZzMjRc qKomfSaarG9bIePxTpDeSP cdLF1nTEMrJ9oyfUIzHCDb PXChC1jmXuHerD6zpWgeHZ vsmqVgXERtE6NwhzKxZAbn ANAxev2wnGtzYCmtUpHsLO QgdGhlIHBhdGllbnQncyBu SQ0gYPJeL8Npm9Ehb01ppt MoSwFvTITkBEXfF3OzpBOk XiHrqA7xf7heLGFlKIH2ZC FdktSig4N1SCJdj9I6LEVi vfPozEMcbLZzzCHka8KmrK 5nIHVwIHRvIDAuMyBjbSBp kvRqtrPwlGDlsZNfmK3onu Phh87up1fhT8jiLOJkYJJc bHRlcmVkIGFuZCBzdWJtaX X7GXEkdM7naF97njKqxyDB XP7kgORiOUEewuYEkVmdkr HOrga1TGkjDPTuGUWREZQZ VCAoQVNDUClccGFyfQ== MICROSCOPIC DESCRIPTION i5viyXKcFABoiNK9WtMmVP (test code = 3371) Ggw4kjk9UxoXMuoFHjHLmq oKSbptWvgh85jIR0cW47EQ 6uWMObUnK1NOBkkoO9Mwb2 EZQiAASifMSiL247g7nyc0 qldvTroYC6mMqxCPCubpwh TsX2JJmfZDLeyadgUNx7SQ ojKNMzjQF8YEUtiDFeD7Ry EITbTF7vjqx4KGR8KVnfPA FsMrI8GKTdhFSlIFMhlKnq KIuyn663QZZ3PjViYWIsxk NgbVtlpC5pXxCtYHRdATPe z8GnECTxrTCexQ== SPECIAL STUDIES (test j2dwgWPnSVEqmTV3EfJzTN code = 3376) Sbq4yyl8DoxRBjmPKoGJpq cBVdkpLzge39tBR6gW56WQ 7gVRZoOuZ1AMXfqoC6Jlh2 RTKfODGnhIGnJ692SVYiKW RimJbrspx6zZ95ZXSypR1r dGJsIDtccmVkMFxncmVlbj RuByc8EWP7fBgpUAHvbvlb LjU1FMrhYZJwpmcvUDd9XQ cpOATauIR7BMYqhUOfT1Cl ICNnDK5rtqq1FDG4WJoxTO MhYqQ9ADHpzLSuMNWeiGvy FJsfa213QQK0VoDjEDWlcf QnhWathG3pBqCqSeFkShnj ZjEgVGhlIGludGVycHJldG D2sB2iEC4dFADiwJDwC5Kg VCNcurEjsMEtCZA2jHFyxD BlML8jBRktuIHht5joj0Xi M7ijnZuwzHL3EF1fJJYuWO ViXNbkv8OljZ0aFxwnGKMn HmvUR8fzIMHlWXyPKdTSXW 8gY2DOYuZXOLKIHUcWB48R QUNURVJccGFyIENvbnRyb2 bvV4haTGGtGXB6AE4lovJf SrDuRJ4grO86t5Jpj66ms5 7daD0hjYDdjsIqW13gqSLh bYMnd4YlYKKgaeNqwNA3GX JmJAsphpezv4h8fHV0zQSz gHAuoNW2pEGqeTNsAQEHhI RrRQJwt692ek7rFKLeoWLh xhWioX6yKByzcjycfOZkVX 5fXZDiVPQvYFFxDX26ihSb TJ1bvHPvr4zfpfMfuGSkh7 LuwXL4GQUayVFsvrreAi8b AH50ZEJsZUomgQ1jbMDsko HdTC4bRA0bE6A7gFQcTKRu ixNwk3snNDzkDX4eLJQlxE xhYmxlIGFyZSBldmFsdWF0 ZWRccGFyICBccGFyIEltbX Uxy2lns5RgV5uhsVqhlMV4 SMOyL5ppjCSkiIS7NEC9dR 4xTXizbvBzIKKdg3QhKUAv XFTtRdG8hS9bRXA9ThFNmR tvLVO4YbI6XDajKIJeQD3q SEtfVDzqQ6LbjDFgPUTZVI Egk0ijE5fkMMAcq9RxlM8c qEC3uPNrWLGttUI6PQAcWN W2SSouxCQnGRAyETGcvIGr fAGnBs5ydXFcZ9IvA2odpi QltEAlqTY9ePEfBXknhyQe UCZ7KJEaaQ6zWZ1xUJCkjZ MdCP4lwRWoAPCnDPQtNHAl MVMbh9OpHQQgdo61BTYyQi gxiMqvZEShHz7gPl9vZGZs qqSrBQA7OnILNT4qfxmotK EuoWpmki7yASwaBYYYZYRv TIXxOBE4FIZniR3rLQO6iB N2FRJ3Y2yiT1viAHHxmaZw SZ4uPJYofLHwhjUhBBdfKN 1gqRKbYQJst8LdqkvoRMRy ROB3YFG1EHfkXJCwUAOrDz 7aQTSphZ0nL6LnWMK3hcDh l7YrZmSXwIXzsE42dWJwvn 95KJJrORCwA3IxJHQsHFJi PCkzjlJyuIbiYIUkx32eiY HqhcZrr6JldeSqUECcJ9dk SXTsbVFulKLmn7QvrR6ztR RmbzBqHTY4yNHnNCZqoO5x DQKpqHeoXLUmjF8mN8ThTH llLz2iPIGkfpvdCT6rhb19 EW0ozvQiKJ6bipVbQX77sv FxQeJlHOy6QRwONLxFCUb6 KSBhcyBxdWFsaWZpZWQgdG 2afNOkUe5ppZHjyBsvWMJd rBMcAFhaoSwaM7isugfzGX ryiTOxv4RmcJ6veHK0XZS3 xT6fFdnrCJH0 Gross assessment was [facility] performed at ([facility], = 2777) Department of Pathology, [address] [place] [address], Technical component was [facility] performed at ([facility], = 2441) Department of Pathology, [address] [place] [address], Professional component [facility] was performed at ([facility], code = 2777) Department of Pathology, [address] [place] [address], [facility] [id number] 11:53:09Surgical Pathology Report Case: [id number] Authorizing Provider: Leo Brambila MD Collected: 11/27/2020 07:58 PM Ordering Location: [address] Received: 11/28/2020 08:25 AM Service Pathologist: Samir Wilson MD Specimen: Biopsy, Gastric Immunostain for helicobacter performed on block A1 is negative. Addendum electronically signed by Samir Wilson MD on 12/07/2020 at 11:53 AMPART A GASTRIC BIOPSY:FOCALLY ACTIVE CHRONIC GASTRITIS.NEGATIVE FOR INTESTINAL METAPLASIA, DYSPLASIA, OR INVASIVE CARCINOMA.WARTHIN STARBASHIR STAIN FOR HELICOBACTER IS EQUIVOCAL.IMMUNOSTAIN FOR HELICOBACTER IS PENDING, ADDENDUM TO FOLLOW. Signing Pathologist Direct Phone Line: [phone] signed by Samir Wilson MD on 11/29/2020 at 2:21 [id number], [id number], [id number] BLEEDGastricReceived in formalin labeled the patient's name, accession number and "gastric biopsy" are 4 lopez soft tissue fragments measuring up to 0.3 cm in greatest dimension which are filtered and submitted in toto in A1.ELOISA Carrasco, HT (ASCP)performedThe interpretation of this case included the use of immunohistochemistry or special stains.BLOCK A1- VICENTA SPICER CTEontrol Slides Examined: In-house known positive controls were evaluated along with the test tissue. These control slides run alongside of the patients sample show appropriate staining. Internal positive and negative controls when available are evaluated Immunohistochemistry technical testing was performed at [facility], Pathology Laboratory where it was developed and its performance characteristics were determined. It has not been cleared or approved by the U.S. Food andDrug Administration. The FDA has determined that such clearance or approval is not necessary. The test is used for clinical purposes. It should not be regarded as investigational or for research. This l aboratory is certified under the Clinical Laboratory Improvement Amendments of 1988 (CLIA-88) as qualified to perform high complexity clinical laboratory testing.[facility], Department of Pathology, [address] [place] [address], [facility] of [facility], [address] [place] [address], [facility], [facility] of [facility], [address] [place] [address], FQV-Glucose [id number] 11:33:29 Test Item Value Reference Range Interpretation Comments POC-Glucose Meter (test 109 mg/dL 70-110 : No tified RN/MD: code = 1538) TESTED AT [address], [facility] 30: Driller Portable/Techni kurt ID = [id number] for White (contract ) Kee Lab Interpretation (test Normal code = 87233-6) [facility] [id number] 11:33:29 Test Item Value Reference Range Interpretation Comments POC-Glucose Meter (test 109 mg/dL 70-110 : No tified RN/MD: code = 1538) TESTED AT [address], [facility] 30: Driller Portable/Techni kurt ID = [id number] for White (contract ) Kee Lab Interpretation (test Normal code = 12196-1) [facility] Center[facility] [id number] 11:33:29 Test Item Value Reference Range Interpretation Comments POC-GLUCOSE METER 109 mg/dL 70-110 : Notified RN/: (KYLE) (test code = TESTED AT [facility] 8151 3944) [place], [address]: Driller Portable/Techni kurt ID = [id number] for Darrick biswas (contract), Artem ert Manual [id number] 11:21:06 Test Item Value Reference Range Interpretation Comments % Neutros (test code 52 % = 2816) % Lymphs (test code = 10 % 2817) % Monos (test code = 9 % 2818) % Bands (test code = 28 % 0-10 H 2826) % Atypical Lymphs 1 % 0-0 H (test code = 2829) # Neutros (test code 2.76 K/ul 1.78-5.38 = 2830) # Lymphs (test code = 0.53 K/ul 1.32-3.57 L 2831) # Monos (test code = 0.48 K/uL 0.30-0.82 2832) # Bands (test code = 1.48 K/uL 0.00-0.80 H 2840) # Atypical Lymphs 0.05 K/uL 0.00-0.00 H (test code = 2858) Total Counted (test 100 code = 1351) nRBC (manual) (test 2 See_Comment H [Automa stephanie code = 1353) message] The system which generated this result transmitted reference range : 0 - 0 /100 WBC. The reference range was not used to interpr et this result as normal/abnormal . Smudge Cells (test Present code = 1371) Giant Platelet (test Present code = 313) Anisocytosis (test 2+ moderate code = 961) Microcytes (test code 2+ moderate = 965) Artifact (test code = Present 3432) Platelet Conc (test Decreased code = 3438) JONAS (test code = JONAS) Driller Portable ID - Rubio Goodwin comments: Slide comments: Lab Interpretation Abnormal (test code = 82295-1) [facility] CenterManual [id number] 11:21:06 Test Item Value Reference Range Interpretation Comments % Neutros (test code 52 % = 2816) % Lymphs (test code = 10 % 2817) % Monos (test code = 9 % 2818) % Bands (test code = 28 % 0-10 H 2826) % Atypical Lymphs 1 % 0-0 H (test code = 2829) # Neutros (test code 2.76 K/ul 1.78-5.38 = 2830) # Lymphs (test code = 0.53 K/ul 1.32-3.57 L 2831) # Monos (test code = 0.48 K/uL 0.30-0.82 2832) # Bands (test code = 1.48 K/uL 0.00-0.80 H 2840) # Atypical Lymphs 0.05 K/uL 0.00-0.00 H (test code = 2858) Total Counted (test 100 code = 1351) nRBC (manual) (test 2 See_Comment H [Automa stephanie code = 1353) message] The system which generated this result transmitted reference range : 0 - 0 /100 WBC. The reference range was not used to interpr et this result as normal/abnormal . Smudge Cells (test Present code = 1371) Giant Platelet (test Present code = 313) Anisocytosis (test 2+ moderate code = 961) Microcytes (test code 2+ moderate = 965) Artifact (test code = Present 3432) Platelet Conc (test Decreased code = 3438) JONAS (test code = JONAS) Driller Portable ID - Rubio StoreyStanford comments: Slide comments: Lab Interpretation Abnormal (test code = 21841-0) [facility](CELLAVISION MANUAL DIFF)2020-11-28 11:21:06 Test Item Value Reference Range Interpretation Comments NEUTROPHILS - REL 52 % (CELLAVISION)(BEAKER) (test code = 2816) LYMPHOCYTES - REL 10 % (CELLAVISION)(BEAKER) (test code = 2817) MONOCYTES - REL 9 % (CELLAVISION)(BEAKER) (test code = 2818) BANDS - REL (CELLAVISION)(BEAKER) 28 % 0-10 H (test code = 2826) ATYPICAL LYMPHOCYTES - REL 1 % 0-0 H (CELLAVISION)(BEAKER) (test code = 2829) NEUTROPHILS - ABS 2.76 K/ul 1.78-5.38 (CELLAVISION)(BEAKER) (test code = 2830) LYMPHOCYTES - ABS 0.53 K/ul 1.32-3.57 L (CELLAVISION)(BEAKER) (test code = 2831) MONOCYTES - ABS 0.48 K/uL 0.30-0.82 (CELLAVISION)(BEAKER) (test code = 2832) BANDS - ABS (CELLAVISION)(BEAKER) 1.48 K/uL 0.00-0.80 H (test code = 2840) ATYPICAL LYMPHOCYTES - ABS 0.05 K/uL 0.00-0.00 H (CELLAVISION)(BEAKER) (test code = 2858) TOTAL COUNTED (BEAKER) (test code 100 = 1351) MANUAL NRBC PER 100 CELLS 2 /100 WBC 0-0 H (BEAKER) (test code = 1353) SMUDGE CELLS (BEAKER) (test code Present = 1371) GIANT PLATELETS (BEAKER) (test Present code = 313) ANISOCYTOSIS (BEAKER) (test code 2+ moderate = 961) MICROCYTES (BEAKER) (test code = 2+ moderate 965) ARTIFACT (CELLAVISION)(BEAKER) Present (test code = 3432) PLATELET CONCENTRATION Decreased (CELLAVISION)(BEAKER) (test code = 3438) Driller Portable ID - Rubio Goodwin comments: Slide comments:CBC with platelet count + automated [id number] 11:21:05 Test Item Value Reference Range Interpretation Comments WBC (test code = 6690-2) 5.3 See_Comment [A utomated message] The system Mascota[employer]ube generated this result transmitted ref erence range: 3.5 - 10 .5 K/L. The refe rence range was not u sed to interpret this result as normal/abnor mal. RBC (test code = 789-8) 2.63 See_Comment L [Au tomated message] The system [employer]asc[employer] generated this result transmitted ref erence range: 4.63 - 6 .08 M/L. The refe rence range was not u sed to interpret this result as normal/abnor mal. MCHC (test code = 786-4) 33.3 See_Comment L [A utomated message] The system [employer]asc[employer] generated this result transmitted ref erence range: 32.3 - 3 6.5 GM/DL. The refe rence range was not u sed to interpret this result as normal/abnor mal. Hematocrit (test code = 22.5 % 40.1-51.0 L 4544-3) MCV (test code = 787-2) 85.6 fL 79.0-92.2 MCH (test code = 785-6) 28.5 pg 25.7-32.2 RDW (test code = 788-0) 13.0 % 11.6-14.4 Platelets (test code = 131 See_Comment L [Aut omated message] 777-3) The system [employer]asc[employer] generated this result transmitted ref erence range: 150 - 45 0 K/CU MM. The referen ce range was not u sed to interpret this result as normal/abnor mal. MPV (test code = 9.8 fL 9.4-12.4 66285-2) nRBC (test code = 413) 0 See_Comment [Aut omated message] The system [employer]asc[employer] generated this result transmitted ref erence range: 0 - 0 /1 00 WBC. The refere nce range was not u sed to interpret this result as normal/abnor mal. Lab Interpretation (test Abnormal code = 88662-9) [facility] with platelet count + automated [id number] 11:21:05 Test Item Value Reference Range Interpretation Comments WBC (test code = 6690-2) 5.3 See_Comment [A utomated message] The system Masc[employer] generated this result transmitted ref erence range: 3.5 - 10 .5 K/L. The refe rence range was not u sed to interpret this result as normal/abnor mal. RBC (test code = 789-8) 2.63 See_Comment L [Au tomated message] The system [employer]asc[employer] generated this result transmitted ref erence range: 4.63 - 6 .08 M/L. The refe rence range was not u sed to interpret this result as normal/abnor mal. MCHC (test code = 786-4) 33.3 See_Comment L [A utomated message] The system [employer]asc[employer] generated this result transmitted ref erence range: 32.3 - 3 6.5 GM/DL. The refe rence range was not u sed to interpret this result as normal/abnor mal. Hematocrit (test code = 22.5 % 40.1-51.0 L 4544-3) MCV (test code = 787-2) 85.6 fL 79.0-92.2 MCH (test code = 785-6) 28.5 pg 25.7-32.2 RDW (test code = 788-0) 13.0 % 11.6-14.4 Platelets (test code = 131 See_Comment L [Aut omated message] 777-3) The system [employer] generated this result transmitted ref erence range: 150 - 45 0 K/CU MM. The referen ce range was not u sed to interpret this result as normal/abnor mal. MPV (test code = 9.8 fL 9.4-12.4 35641-9) nRBC (test code = 413) 0 See_Comment [Aut omated message] The system [employer]asc[employer] generated this result transmitted ref erence range: 0 - 0 /1 00 WBC. The refere nce range was not u sed to interpret this result as normal/abnor mal. Lab Interpretation (test Abnormal code = 45447-1) [facility] W/PLT COUNT & AUTO [id number] 11:21:05 Test Item Value Reference Range Interpretation Comments WHITE BLOOD CELL COUNT (BEAKER) 5.3 K/ L 3.5-10.5 (test code = 775) RED BLOOD CELL COUNT (BEAKER) 2.63 M/ L 4.63-6.08 L (test code = 761) HEMOGLOBIN (BEAKER) (test code = 7.5 GM/DL 13.7-17.5 L 410) HEMATOCRIT (BEAKER) (test code = 22.5 % 40.1-51.0 L 411) MEAN CORPUSCULAR VOLUME (BEAKER) 85.6 fL 79.0-92.2 (test code = 753) MEAN CORPUSCULAR HEMOGLOBIN 28.5 pg 25.7-32.2 (BEAKER) (test code = 751) MEAN CORPUSCULAR HEMOGLOBIN CONC 33.3 GM/DL 32.3-36.5 (BEAKER) (test code = 752) RED CELL DISTRIBUTION WIDTH 13.0 % 11.6-14.4 (BEAKER) (test code = 412) PLATELET COUNT (BEAKER) (test 131 K/CU MM 150-450 L code = 756) MEAN PLATELET VOLUME (BEAKER) 9.8 fL 9.4-12.4 (test code = 754) NUCLEATED RED BLOOD CELLS 0 /100 WBC 0-0 (BEAKER) (test code = 413) POCT-GLUCOSE [id number] 07:42:16 Test Item Value Reference Range Interpretation Comments POC-GLUCOSE METER 138 mg/dL 70-110 H : Notified RN/MD: (KYLE) (test code = TESTED AT [facility] 9324 1728) [place] [facility], [address]: Driller Portable/Techni kurt ID = [id number] for Darrick itjoanne (contract), Artem arroyo Basic Metabolic [id number] 06:47:28 Test Item Value Reference Range Interpretation Comments Sodium (test code = 135 meq/L 136-145 L 2951-2) Potassium (test code = 3.9 meq/L 3.5-5.1 2823-3) Chloride (test code = 103 meq/L 98-107 2075-0) CO2 (test code = 23 meq/L 2027-9) BUN (test code = 9 mg/dL 10-04 3094-0) Creatinine (test code 0.81 mg/dL 0.57-1.25 = 2160-0) Glucose (test code = 125 mg/dL 70-105 H 2345-7) Calcium (test code = 8.1 mg/dL 8.4-10.2 L 61950-2) EGFR (test code = 101 mL/min/1.73 [place] [address]-6) NOT ACCURATE CREATININE CLEARANCE IN PREDICTING GLOMERULAR FILTRATION RATE . ESTIMATED GFR I S NOT APPLICABLE FOR DIALYSIS PATIENTS. JONAS (test code = JONAS) Driller Portable ID - DARRELL Toth Lab Interpretation Abnormal (test code = 52072-9) [facility] Metabolic [id number] 06:47:28 Test Item Value Reference Range Interpretation Comments Sodium (test code = 135 meq/L 136-145 L 2951-2) Potassium (test code = 3.9 meq/L 3.5-5.1 2823-3) Chloride (test code = 103 meq/L 98-107 2075-0) CO2 (test code = 23 meq/L -2027-9) BUN (test code = 9 mg/dL 7-21 3094-0) Creatinine (test code 0.81 mg/dL 0.57-1.25 = 2160-0) Glucose (test code = 125 mg/dL 70-105 H 2345-7) Calcium (test code = 8.1 mg/dL 8.4-10.2 L 83165-6) EGFR (test code = 101 mL/min/1.73 [place] [address]-8) NOT ACCURATE CREATININE CLEARANCE IN PREDICTING GLOMERULAR FILTRATION RATE . ESTIMATED GFR I S NOT APPLICABLE FOR DIALYSIS PATIENTS. JONAS (test code = JONAS) Driller Portable ID - DARRELL W Lab Interpretation Abnormal (test code = 63295-3) [facility] METABOLIC [id number] 06:47:28 Test Item Value Reference Range Interpretation Comments SODIUM (BEAKER) 135 meq/L 136-145 L (test code = 381) POTASSIUM (BEAKER) 3.9 meq/L 3.5-5.1 (test code = 379) CHLORIDE (BEAKER) 103 meq/L 98-107 (test code = 382) CO2 (BEAKER) (test 23 meq/L 22-29 code = 355) BLOOD UREA NITROGEN 9 mg/dL 7-21 (BEAKER) (test code = 354) CREATININE (BEAKER) 0.81 mg/dL 0.57-1.25 (test code = 358) GLUCOSE RANDOM 125 mg/dL 70-105 H (BEAKER) (test code = 652) CALCIUM (BEAKER) 8.1 mg/dL 8.4-10.2 L (test code = 697) EGFR (BEAKER) (test 101 mL/min/1.73 ESTIM ATED GFR IS code = 1092) sq m NOT ACCURATE CREATININE CLEARANCE IN PREDICTING GLOMERULAR FILTRATION RATE . ESTIMATED GFR I S NOT APPLICABLE FOR DIALYSIS PATIEN TS. Driller Portable ID - DARRELL WPOCT-GLUCOSE [id number] 21:45:24 Test Item Value Reference Range Interpretation Comments POC-GLUCOSE METER 115 mg/dL 70-110 H : TESTED A T [facility] 6720 (BEAKER) (test code = [place], 1538) [address]: Driller Portable/Techni kurt ID = [id number] for OTILIA CROOK POCT-GLUCOSE [id number] 16:23:02 Test Item Value Reference Range Interpretation Comments POC-GLUCOSE METER 109 mg/dL 70-110 : Notified RN/MD: (KYLE) (test code = TESTED AT [facility] 6720 1538) [place] [facility], [address]: Driller Portable/Techni kurt ID = [id number] for Darrick ite (contract)Artem U/S, ABDOMINAL, [id number] 13:23:00High volume of scansReason for exam:- >evaluated for cirrhosis and evidence of portal hypertensionShould this be performed at the bedside?->Yes [facility] 1970 Sex: MFINAL REPORT TECHNIQUE: Grayscale ultrasound of the abdomen. INDICATION: evaluated for cirrhosis and evidence of portal hypertension COMPARISON: None. FINDINGS: MIDLINE VASCULATURE: The visualized inferior vena cava is patent. Portal vein is patent and measures 1.0 cm in diameter. The maximum visualized aortic diameter is 1.8 cm. LIVER: Liver demonstrates diffuse increased echogenicity.. The contour of the liver is smooth. The liver measures 15.6 cm in length. No focal lesions. BILIARY:Gallbladder: No gallstones or sludge. No gallbladder wall thickening, pericholecystic fluid, or distention. Negative sonographic Guerrero sign.Common bile duct measures 0.4 cm, within normal limits. No intrahepatic biliary ductal dilatation. PANCREAS: Incompletely visualized due to overlying bowel gas. SPLEEN: No splenomegaly. The spleen measures 10.2 cm in length. PERITONEUM: No free fluid.KIDNEYS: The kidneys are normal in size. No hydronephrosis. No sonographically evident solid mass lesion. The right kidney measures 10.4 cm in length. The left kidney measures 10.3 cm in length. IMPRESSION:Hepatic steatosis and/or diffuse hepatocellular disease. No focal liver lesion.. No splenomegaly or ascites to suggest portal hypertension. Signed: Avery Geeeport Verified Date/Time: 11/27/2020 13:23:21 -GLUCOSE [id number] 08:26:23 Test Item Value Reference Range Interpretation Comments POC-GLUCOSE METER 123 mg/dL 70-110 H : Notified RN/MD: (BEAKER) (test code = TESTED AT [facility] 6720 1538) [place] [facility], [address]: Driller Portable/Techni kurt ID = [id number] for Darrick biswas (contract), Artem arroyo BASIC METABOLIC [id number] 07:26:50 Test Item Value Reference Range Interpretation Comments SODIUM (BEAKER) 138 meq/L 136-145 (test code = 381) POTASSIUM (BEAKER) 4.0 meq/L 3.5-5.1 Specimen slightly (test code = 379) hemolyzed CHLORIDE (BEAKER) 106 meq/L 98-107 (test code = 382) CO2 (BEAKER) (test 23 meq/L 22-29 code = 355) BLOOD UREA NITROGEN 10 mg/dL 7-21 (BEAKER) (test code = 354) CREATININE (BEAKER) 0.76 mg/dL 0.57-1.25 Specimen slightly (test code = 358) hemolyzed GLUCOSE RANDOM 123 mg/dL 70-105 H (BEAKER) (test code = 652) CALCIUM (BEAKER) 8.1 mg/dL 8.4-10.2 L (test code = 697) EGFR (BEAKER) (test 109 mL/min/1.73 ESTIM ATED GFR IS code = 1092) sq m NOT ACCURATE CREATININE CLEARANCE IN PREDICTING GLOMERULAR FILTRATION RATE . ESTIMATED GFR I S NOT APPLICABLE FOR DIALYSIS PATIEN TS. Driller Portable ID - PIAYA LProthrombin time/[id number] 06:31:42 Test Item Value Reference Interpretation Comments Range Protime (test code = 13.2 See_Comment [Autom ated 5902-2) message] The system which generated this result transmitted reference range : 11.9 - 14.2 seconds. The reference range was not used to interpret this result as normal/abnormal . INR (test code = 1.02 See_Comment [Automated 6301-6) message] The system which generated this result transmitted reference range : <=5.90. The reference range was not used to interpret this result as normal/abnormal . JONAS (test code = RECOMMENDED JONAS) COUMADIN/WARFARIN INR THERAPY RANGESSTANDARD DOSE: 2.0 - 3.0 Includes: PROPHYLAXIS for venous thrombosis, systemic embolization; TREATMENT for venous thrombosis and/or pulmonary embolus.HIGH RISK: Target INR is 2.5-3.5 for patients with mechanical heart valves. Lab Interpretation Normal (test code = 68310-9) [facility] CenterProthrombin time/[id number] 06:31:42 Test Item Value Reference Interpretation Comments Range Protime (test code = 13.2 See_Comment [Autom ated 5902-2) message] The system which generated this result transmitted reference range : 11.9 - 14.2 seconds. The reference range was not used to interpret this result as normal/abnormal . INR (test code = 1.02 See_Comment [Automated 6301-6) message] The system which generated this result transmitted reference range : <=5.90. The reference range was not used to interpret this result as normal/abnormal . JONAS (test code = RECOMMENDED JONAS) COUMADIN/WARFARIN INR THERAPY RANGESSTANDARD DOSE: 2.0 - 3.0 Includes: PROPHYLAXIS for venous thrombosis, systemic embolization; TREATMENT for venous thrombosis and/or pulmonary embolus.HIGH RISK: Target INR is 2.5-3.5 for patients with mechanical heart valves. Lab Interpretation Normal (test code = 49508-6) [facility] CenterPROTHROMBIN TIME/[id number] 06:31:42 Test Item Value Reference Range Interpretation Comments PROTIME (BEAKER) 13.2 seconds 11.9-14.2 (test code = 759) INR (BEAKER) (test 1.02 See_Comment [Automat ed message] code = 370) The system Masc[employer] generated this result transmitted ref erence range: <=5.90. The reference range was not used to int erpret this result as normal/abnormal . RECOMMENDED COUMADIN/WARFARIN INR THERAPY RANGESSTANDARD DOSE: 2.0 - 3.0 Includes: PROPHYLAXIS forvenous thrombosis, systemic embolization; TREATMENT for venous thrombosis and/or pulmonary embolus.HIGH RISK: Target INR is 2.5-3.5 for patients with mechanical heart valves.CBC (Hemogram only)2020-11-27 06:31:25 Test Item Value Reference Range Interpretation Comments WBC (test code = 6690-2) 3.3 See_Comment L [A utomated message] The system [employer]asc[employer] generated this result transmitted ref erence range: 3.5 - 10 .5 K/L. The refe rence range was not u sed to interpret this result as normal/abnor mal. RBC (test code = 789-8) 2.85 See_Comment L [Au tomated message] The system [employer]asc[employer] generated this result transmitted ref erence range: 4.63 - 6 .08 M/L. The refe rence range was not u sed to interpret this result as normal/abnor mal. MCHC (test code = 786-4) 34.3 See_Comment L [A utomated message] The system [employer] generated this result transmitted ref erence range: 32.3 - 3 6.5 GM/DL. The refe rence range was not u sed to interpret this result as normal/abnor mal. Hematocrit (test code = 24.2 % 40.1-51.0 L 4544-3) MCV (test code = 787-2) 84.9 fL 79.0-92.2 MCH (test code = 785-6) 29.1 pg 25.7-32.2 RDW (test code = 788-0) 13.2 % 11.6-14.4 Platelets (test code = 119 See_Comment L [Aut omated message] 777-3) The system [employer] generated this result transmitted ref erence range: 150 - 45 0 K/CU MM. The referen ce range was not u sed to interpret this result as normal/abnor mal. MPV (test code = 9.8 fL 9.4-12.4 57922-4) nRBC (test code = 413) 0 See_Comment [Aut omated message] The system [employer] generated this result transmitted ref erence range: 0 - 0 /1 00 WBC. The refere nce range was not u sed to interpret this result as normal/abnor mal. Lab Interpretation (test Abnormal code = 34948-9) [facility]2020-11-27 06:31:25 Test Item Value Reference Range Interpretation Comments WBC (test code = 6690-2) 3.3 See_Comment L [A utomated message] The system [employer] generated this result transmitted ref erence range: 3.5 - 10 .5 K/L. The refe rence range was not u sed to interpret this result as normal/abnor mal. RBC (test code = 789-8) 2.85 See_Comment L [Au tomated message] The system [employer] generated this result transmitted ref erence range: 4.63 - 6 .08 M/L. The refe rence range was not u sed to interpret this result as normal/abnor mal. MCHC (test code = 786-4) 34.3 See_Comment L [A utomated message] The system [employer] generated this result transmitted ref erence range: 32.3 - 3 6.5 GM/DL. The refe rence range was not u sed to interpret this result as normal/abnor mal. Hematocrit (test code = 24.2 % 40.1-51.0 L 4544-3) MCV (test code = 787-2) 84.9 fL 79.0-92.2 MCH (test code = 785-6) 29.1 pg 25.7-32.2 RDW (test code = 788-0) 13.2 % 11.6-14.4 Platelets (test code = 119 See_Comment L [Aut omated message] 777-3) The system [employer] generated this result transmitted ref erence range: 150 - 45 0 K/CU MM. The referen ce range was not u sed to interpret this result as normal/abnor mal. MPV (test code = 9.8 fL 9.4-12.4 45253-6) nRBC (test code = 413) 0 See_Comment [Aut omated message] The system [employer] generated this result transmitted ref erence range: 0 - 0 /1 00 WBC. The refere nce range was not u sed to interpret this result as normal/abnor mal. Lab Interpretation (test Abnormal code = 55175-0) [facility]2020-[facility]-27 06:31:25 Test Item Value Reference Range Interpretation Comments WHITE BLOOD CELL COUNT (BEAKER) 3.3 K/ L 3.5-10.5 L (test code = 775) RED BLOOD CELL COUNT (BEAKER) 2.85 M/ L 4.63-6.08 L (test code = 761) HEMOGLOBIN (BEAKER) (test code = 8.3 GM/DL 13.7-17.5 L 410) HEMATOCRIT (BEAKER) (test code = 24.2 % 40.1-51.0 L 411) MEAN CORPUSCULAR VOLUME (BEAKER) 84.9 fL 79.0-92.2 (test code = 753) MEAN CORPUSCULAR HEMOGLOBIN 29.1 pg 25.7-32.2 (BEAKER) (test code = 751) MEAN CORPUSCULAR HEMOGLOBIN CONC 34.3 GM/DL 32.3-36.5 (BEAKER) (test code = 752) RED CELL DISTRIBUTION WIDTH 13.2 % 11.6-14.4 (BEAKER) (test code = 412) PLATELET COUNT (BEAKER) (test 119 K/CU MM 150-450 L code = 756) MEAN PLATELET VOLUME (BEAKER) 9.8 fL 9.4-12.4 (test code = 754) NUCLEATED RED BLOOD CELLS 0 /100 WBC 0-0 (BEAKER) (test code = 413) Hemoglobin and [id number] 01:41:27 Test Item Value Reference Range Interpretation Comments Hemoglobin (test code 9.2 See_Comment L [Auto mated = 786-4) message] The system which generated this result transmit stephanie reference range : 13.7 - 17.5 GM/ DL. The reference range was not u sed to interpret th is result as normal/abnormal . Hematocrit (test code 27.3 % 40.1-51.0 L = 4544-3) JONAS (test code = JONAS) Driller Portable ID - 6000 Lab Interpretation Abnormal (test code = 28245-2) [facility] and [id number] 01:41:27 Test Item Value Reference Range Interpretation Comments Hemoglobin (test code 9.2 See_Comment L [Auto mated = 786-4) message] The system which generated this result transmit stephanie reference range : 13.7 - 17.5 GM/ DL. The reference range was not u sed to interpret th is result as normal/abnormal . Hematocrit (test code 27.3 % 40.1-51.0 L = 4544-3) JONAS (test code = JONAS) Driller Portable ID - 6000 Lab Interpretation Abnormal (test code = 53458-1) [facility]HEMOGLOBIN AND [id number] 01:41:27 Test Item Value Reference Range Interpretation Comments HEMOGLOBIN (BEAKER) (test code = 9.2 GM/DL 13.7-17.5 L 410) HEMATOCRIT (BEAKER) (test code = 27.3 % 40.1-51.0 L 411) Driller Portable ID - 6000ABORH, [id number] 01:20:00 Test Item Value Reference Range Interpretation Comments ABO Grouping (test code = 2588) B Rh Factor (test code = 2589) POS [facility] CenterABORH, [id number] 01:20:00 Test Item Value Reference Range Interpretation Comments ABO Grouping (test code = 2588) B Rh Factor (test code = 2589) [facility]Type and screen, [id number] 00:08:00 Test Item Value Reference Range Interpretation Comments ABO/RH AUTOMATED (BEAKER) (test B POSITIVE code = 2260) Ab Scrn (test code = 890-4) NEGATIVE [facility] screen, [id number] 00:08:00 Test Item Value Reference Range Interpretation Comments ABO/RH AUTOMATED (BEAKER) (test B POSITIVE code = 2260) Ab Scrn (test code = 890-4) NEGATIVE [facility]T COUNT & AUTO [id number] 15:40:19 Test Item Value Reference Range Interpretation Comments WHITE BLOOD CELL COUNT (BEAKER) 3.5 K/ L 3.5-10.5 (test code = 775) RED BLOOD CELL COUNT (BEAKER) 3.68 M/ L 4.63-6.08 L (test code = 761) HEMOGLOBIN (BEAKER) (test code = 10.8 GM/DL 13.7-17.5 L 410) HEMATOCRIT (BEAKER) (test code = 32.1 % 40.1-51.0 L 411) MEAN CORPUSCULAR VOLUME (BEAKER) 87.2 fL 79.0-92.2 (test code = 753) MEAN CORPUSCULAR HEMOGLOBIN 29.3 pg 25.7-32.2 (BEAKER) (test code = 751) MEAN CORPUSCULAR HEMOGLOBIN CONC 33.6 GM/DL 32.3-36.5 (BEAKER) (test code = 752) RED CELL DISTRIBUTION WIDTH 13.2 % 11.6-14.4 (BEAKER) (test code = 412) PLATELET COUNT (BEAKER) (test 179 K/CU MM 150-450 code = 756) MEAN PLATELET VOLUME (BEAKER) 9.6 fL 9.4-12.4 (test code = 754) NUCLEATED RED BLOOD CELLS 0 /100 WBC 0-0 (BEAKER) (test code = 413) NEUTROPHILS RELATIVE PERCENT 49 % (BEAKER) (test code = 429) LYMPHOCYTES RELATIVE PERCENT 36 % (BEAKER) (test code = 430) MONOCYTES RELATIVE PERCENT 14 % (BEAKER) (test code = 431) EOSINOPHILS RELATIVE PERCENT 1 % (BEAKER) (test code = 432) BASOPHILS RELATIVE PERCENT 1 % (BEAKER) (test code = 437) NEUTROPHILS ABSOLUTE COUNT 1.69 K/ L 1.78-5.38 L (BEAKER) (test code = 670) LYMPHOCYTES ABSOLUTE COUNT 1.23 K/ L 1.32-3.57 L (BEAKER) (test code = 414) MONOCYTES ABSOLUTE COUNT (BEAKER) 0.47 K/ L 0.30-0.82 (test code = 415) EOSINOPHILS ABSOLUTE COUNT 0.02 K/ L 0.04-0.54 L (BEAKER) (test code = 416) BASOPHILS ABSOLUTE COUNT (BEAKER) 0.02 K/ L 0.01-0.08 (test code = 417) IMMATURE GRANULOCYTES-RELATIVE 1 % 0-1 PERCENT (BEAKER) (test code = 2801) [id number] 13:10:18 Test Item Value Reference Range Interpretation Comments Ferritin (test code = 601.41 ng/mL 5.00-275.00 H 2276-4) JONAS (test code = JONAS) Driller Portable ID - ANIBAL F Lab Interpretation (test Abnormal code = 92976-2) [facility] CenterFerritin2021-09-12 13:10:18 Test Item Value Reference Range Interpretation Comments Ferritin (test code = 601.41 ng/mL 5.00-275.00 H 2276-4) JONAS (test code = JONAS) Driller Portable ID - ANIBAL F Lab Interpretation (test Abnormal code = 91148-0) [facility] CenterFERRITIN2021-09-12 13:10:18 Test Item Value Reference Range Interpretation Comments FERRITIN (BEAKER) (test code = 601.41 ng/mL 5.00-275.00 H 361) Driller Portable ID Sabas BARNETT FHEMOGLOBIN AND [id number] 13:05:13 Test Item Value Reference Range Interpretation Comments HEMOGLOBIN (BEAKER) (test code = 8.3 GM/DL 13.7-17.5 L 410) HEMATOCRIT (BEAKER) (test code = 24.8 % 40.1-51.0 L 411) Driller Portable ID - [id number] 12:36:36 Test Item Value Reference Range Interpretation Comments D-Dimer, Quant (test <0.27 See_Comment [Autom ated code = 91651-5) message] The system which generated this result transmitted reference range : <0.50 MG/L FEU. The reference range was not used to interpr et this result as normal/abnormal . JONAS (test code = JONAS) Intended Use: The D-Dimer Assay can be used to aid in the diagnosis of Deep Vein Thrombosis (DVT) and Pulmonary Embolism Disease (PED).In patients with low pre-test probability, various studies concerning STA Liatest D-dimer test have reported that with a cutoff value of 0.50 MG/L FEU, the Negative Predictive Value (NPV) regarding the exclusion of thrombosis is within 95-100% range. Lab Interpretation Normal (test code = 17910-7) [facility] CenterD-[id number] 12:36:36 Test Item Value Reference Range Interpretation Comments D-Dimer, Quant (test <0.27 See_Comment [Autom ated code = 58707-2) message] The system which generated this result transmitted reference range : <0.50 MG/L FEU. The reference range was not used to interpr et this result as normal/abnormal . JONAS (test code = JONAS) Intended Use: The D-Dimer Assay can be used to aid in the diagnosis of Deep Vein Thrombosis (DVT) and Pulmonary Embolism Disease (PED).In patients with low pre-test probability, various studies concerning STA Liatest D-dimer test have reported that with a cutoff value of 0.50 MG/L FEU, the Negative Predictive Value (NPV) regarding the exclusion of thrombosis is within 95-100% range. Lab Interpretation Normal (test code = 01568-8) [facility] CenterD-[id number] 12:36:36 Test Item Value Reference Range Interpretation Comments D-DIMER QUANTITATIVE (BEAKER) < MG/L FEU <0.50 (test code = 671) Intended Use: The D-Dimer Assay can be used to aid in the diagnosis of Deep Vein Thrombosis (DVT) and Pulmonary Embolism Disease (PED).In patients with low pre- test probability, various studies concerning STA Liatest D-dimer test have reported that with a cutoff value of 0.50 MG/L FEU, the Negative Predictive Value (NPV) regarding the exclusion of thrombosis is within 95-100% range.BASIC METABOLIC [id number] 12:33:18 Test Item Value Reference Range Interpretation Comments SODIUM (BEAKER) 136 meq/L 136-145 (test code = 381) POTASSIUM (BEAKER) 4.1 meq/L 3.5-5.1 Specimen slightly (test code = 379) hemolyzed CHLORIDE (BEAKER) 106 meq/L 98-107 (test code = 382) CO2 (BEAKER) (test 21 meq/L 22-29 L code = 355) BLOOD UREA NITROGEN 12 mg/dL 7-21 (BEAKER) (test code = 354) CREATININE (BEAKER) 0.76 mg/dL 0.57-1.25 Specimen slightly (test code = 358) hemolyzed GLUCOSE RANDOM 128 mg/dL 70-105 H (BEAKER) (test code = 652) CALCIUM (BEAKER) 7.7 mg/dL 8.4-10.2 L (test code = 697) EGFR (BEAKER) (test 109 mL/min/1.73 ESTIM ATED GFR IS code = 1092) sq m NOT ACCURATE CREATININE CLEARANCE IN PREDICTING GLOMERULAR FILTRATION RATE . ESTIMATED GFR I S NOT APPLICABLE FOR DIALYSIS PATIEN TS. Driller Portable ID - ANIBAL Anderson, TIBC, % sat. (without ferritin)2020-11-26 12:32:30 Test Item Value Reference Range Interpretation Comments Iron (test code = 2498-4) 81.0 ug/dL 40.0-160.0 TIBC (test code = 2500-7) 298 ug/dL 250-450 Iron % Saturation (test 27 % 20-55 code = 2502-3) JONAS (test code = JONAS) Driller Portable ID Sabas Zambrano Lab Interpretation (test Normal code = 69946-7) [facility] CenterIron, TIBC, % sat. (without ferritin)2020-11-26 12:32:30 Test Item Value Reference Range Interpretation Comments Iron (test code = 2498-4) 81.0 ug/dL 40.0-160.0 TIBC (test code = 2500-7) 298 ug/dL 250-450 Iron % Saturation (test 27 % 20-55 code = 2502-3) JONAS (test code = JONAS) Driller Portable ID Sabas Zambrano Lab Interpretation (test Normal code = 56391-5) [facility] CenterIRO, TIBC, % SAT. (WITHOUT FERRITIN)2020-11-26 12:32:30 Test Item Value Reference Range Interpretation Comments IRON (BEAKER) (test code = 547) 81.0 ug/dL 40.0-160.0 TOTAL IRON BINDING CAPACITY 298 ug/dL 250-450 (BEAKER) (test code = 769) IRON % SATURATION (2) (BEAKER) 27 % 20-55 (test code = 2590) Driller Portable ID Sabas BARNETT FHepatic function [id number] 12:30:48 Test Item Value Reference Range Interpretation Comments Protein, Total (test 6.2 See_Comment Specime n slightly code = 2885-2) hemolyzed [Automated message] The system which generated this result transmit stephanie reference range : 6.0 - 8.3 gm/dL . The reference range was not u sed to interpret th is result as normal/abnormal . Albumin (test code = 3.3 g/dL 3.5-5.0 L Specime n slightly 33964-9) hemolyzed Total Bilirubin (test 0.3 mg/dL 0.2-1.2 Specim en slightly code = 1975-2) hemolyzed Bilirubin, Direct 0.1 mg/dL 0.1-0.5 Specimen s lightly (test code = 1967-7) hemolyz ed Alkaline Phosphatase 48 U/L 40-150 (test code = 6768-6) AST (test code = 32 U/L 5-34 Specimen sl ightly 1920-8) hemolyzed ALT (test code = 36 U/L 6-55 Specimen sl ightly 1742-6) hemolyzed JONAS (test code = JONAS) Driller Portable ID - ANIBAL Zambrano Lab Interpretation Abnormal (test code = 36416-9) [facility]-Reactive [id number] 12:30:48 Test Item Value Reference Range Interpretation Comments CRP (test code = 676) 0.25 mg/dL 0.00-0.50 JONAS (test code = JONAS) Driller Portable ID - ANIBAL Zambrano Lab Interpretation (test Normal code = 91701-2) [facility] CenterHepatic function [id number] 12:30:48 Test Item Value Reference Range Interpretation Comments Protein, Total (test 6.2 See_Comment Specime n slightly code = 2885-2) hemolyzed [Automated message] The system which generated this result transmit stephanie reference range : 6.0 - 8.3 gm/dL . The reference range was not u sed to interpret th is result as normal/abnormal . Albumin (test code = 3.3 g/dL 3.5-5.0 L Specime n slightly 75914-9) hemolyzed Total Bilirubin (test 0.3 mg/dL 0.2-1.2 Specim en slightly code = 1974-2) hemolyzed Bilirubin, Direct 0.1 mg/dL 0.1-0.5 Specimen s lightly (test code = 1967-09) hemolyz ed Alkaline Phosphatase 48 U/L 40-150 (test code = 6768-6) AST (test code = 32 U/L 5-34 Specimen sl ightly 1920-8) hemolyzed ALT (test code = 36 U/L 6-55 Specimen sl ightly 1742-6) hemolyzed JONAS (test code = JONAS) Driller Portable ID - ANIBAL Zambrano Lab Interpretation Abnormal (test code = 21375-7) [facility] [id number] 12:30:48 Test Item Value Reference Range Interpretation Comments CRP (test code = 676) 0.25 mg/dL 0.00-0.50 JONAS (test code = JONAS) Driller Portable ID Sabas Zambrano Lab Interpretation (test Normal code = 72872-7) [facility] CenterHEPATIC FUNCTION [id number] 12:30:48 Test Item Value Reference Range Interpretation Comments TOTAL PROTEIN (BEAKER) 6.2 gm/dL 6.0-8.3 Speci men slightly (test code = 770) hemolyzed ALBUMIN (BEAKER) (test 3.3 g/dL 3.5-5.0 L Speci men slightly code = 1145) hemolyzed BILIRUBIN TOTAL 0.3 mg/dL 0.2-1.2 Specimen sli ghtly (BEAKER) (test code = hemoly zed 377) BILIRUBIN DIRECT 0.1 mg/dL 0.1-0.5 Specimen sl ightly (BEAKER) (test code = hemoly zed 706) ALKALINE PHOSPHATASE 48 U/L 40-150 (BEAKER) (test code = 346) AST (SGOT) (BEAKER) 32 U/L 5-34 Specimen slightly (test code = 353) hemolyzed ALT (SGPT) (BEAKER) 36 U/L 6-55 Specimen slightly (test code = 347) hemolyzed Driller Portable JADEN BARNETT FC-REACTIVE [id number] 12:30:48 Test Item Value Reference Range Interpretation Comments C-REACTIVE PROTEIN (BEAKER) (test 0.25 mg/dL 0.00-0.50 code = 676) Driller Portable ID Sabas Zambrano
[2021-09-09 00:43] LABS: Absolute Lymphocytes (CBC) 1.8 K/uL (0.7-4.9); Hematocrit 39.1 % (39.6-49.0); Lymphocytes % 39.8 % (15.3-44.8); RBC Red Blood Cell Count 4.55 M/uL (4.33-5.43)
[2021-09-09] MEDS ORDERED: NA CHLORIDE 0.9% 1,000 ML ONE (00:43)
[2021-09-09] MEDS ORDERED: PANTOPRAZOLE 40 MG INJ ONE (00:46)
[2021-09-09 00:55] LABS: Protime INR 0.88
[2021-09-09 01:08] LABS: Albumin 3.6 g/dL (3.4-5.0); Bilirubin Direct 0.1 mg/dL (0-0.2); Bilirubin Total 0.4 mg/dL (0.2-1.0); Potassium 3.5 mmol/L (3.5-5.1); Protein, Total 7.8 g/dL (6.4-8.2)
--- NOTE | 2021-09-09 03:01 | ER ---
Nurse's Notes [facility] Name: Heide Harris Age: 50 yrs Sex: Male : 1970 Arrival Date: 09/08/2021 Time: 23:33 Bed 16 Private MD: Diagnosis: Rectal Bleeding Presentation: 09/08 23:36 Chief complaint: Patient states: "I have blood in my stool". Coronavirus screen: At as6 this time, the client does not indicate any symptoms associated with coronavirus-19. Ebola Screen: No symptoms or risks identified at this time. Initial Sepsis Screen: Does the patient meet any 2 criteria? No. Patient's initial sepsis screen is negative. Does the patient have a suspected source of infection? No. Patient's initial sepsis screen is negative. Risk Assessment: Do you want to hurt yourself or someone else? Patient reports no desire to harm self or others. Onset of symptoms was September 08, 2021. 23:36 Method Of Arrival: Ambulatory as6 23:36 Acuity: YG 3 as6 Historical: - Allergies: 23:37 Ciprofloxacin; as6 23:37 Cipro IV; as6 - Home Meds: 23:37 None [Active]; as6 - PMHx: 23:37 None; as6 - PSHx: 23:37 None; as6 - Immunization history:: Client reports receiving the 2nd dose of the Covid vaccine, pfizer . - Social history:: Smoking status: Patient denies any tobacco usage or history of. Screenin:47 Abuse screen: Denies threats or abuse. Nutritional screening: No deficits noted. bb Tuberculosis screening: No symptoms or risk factors identified. Fall Risk None identified. Assessment: 23:47 General: Appears in no apparent distress. Behavior is calm, cooperative. Pain: Denies bb pain. Neuro: Level of Consciousness is awake, alert, obeys commands, Oriented to person, place, time, situation. Cardiovascular: Capillary refill < 3 seconds Patient's skin is warm and dry. Respiratory: Respiratory effort is even, unlabored, Respiratory pattern is regular. GI: Abdomen is round non-distended, Bowel sounds present X 4 quads. Abd is soft and non tender X 4 quads. Reports rectal bleeding. Derm: Skin is pink, warm \\T\\ dry. Musculoskeletal: Circulation, motion, and sensation intact. 09/09 00:48 Reassessment: No changes from previously documented assessment. Patient is alert, bb oriented x 3, equal unlabored respirations, skin warm/dry/pink. 01:34 Reassessment: Patient is alert, oriented x 3, equal unlabored respirations, skin bb warm/dry/pink. awaiting diagnostic results, family at bedside. 02:38 Reassessment: pt sleeping, eyes closed, resp unlabored, family at bedside, awaiting bb disposition. 03:09 Reassessment: Patient is alert, oriented x 3, equal unlabored respirations, skin bb warm/dry/pink. pt verbalized understanding of and agrees to plan of care discharge instructions given pt ambulated with steady gait to exit accompanied by spouse. Vital Signs: 09/08 23:36 BP 154 / 91; Pulse 86; Resp 18 S; Temp 98.3(O); Pulse Ox 100% on R/A; Weight 71.21 kg as6 (R); Height 5 ft. 7 in. (170.18 cm) (R); Pain 0/10; 09/09 00:48 BP 153 / 85; Pulse 82; Resp 16; Pulse Ox 97% on R/A; bb 01:35 BP 147 / 85; Pulse 76; Resp 16 S; Pulse Ox 98% on R/A; bb 02:39 BP 150 / 84; Pulse 65; Resp 16 S; Pulse Ox 97% on R/A; bb 03:08 BP 143 / 95; Pulse 66; Resp 16 S; Temp 98.1(TE); Pulse Ox 98% on R/A; bb 09/08 23:36 Body Mass Index 24.59 (71.21 kg, 170.18 cm) as6 ED Course: 09/08 23:33 Patient arrived in ED. bp1 23:37 Triage completed. as6 23:38 Arm band placed on. as6 23:47 Latisha Das, JONAH is Primary Nurse. bb 23:47 Patient has correct armband on for positive identification. Placed in gown. Bed in low bb position. Call light in reach. Side rails up X 1. Adult w/ patient. Pulse ox on. NIBP on. Warm blanket given. Pillow given. 23:49 Josep Lan MD is Attending Physician. 7 06/26 00:30 Initial lab(s) drawn, by sd, sent to lab. COVID swab sent to lab. Inserted saline lock: bb 18 gauge in left antecubital area, using aseptic technique. Blood collected. 00:44 EKG done, by ED staff, reviewed by Josep Lan MD. [facility] 03:00 Carl Bauer MD is Referral Physician. 7 03:09 No provider procedures requiring assistance completed. IV discontinued, intact, bb bleeding controlled, No redness/swelling at site. Pressure dressing applied. Administered Medications: 00:47 Drug: ProTONIX (pantoprazole) 80 mg Route: IVP; Site: left antecubital; bb 01:34 Follow up: Response: No adverse reaction bb 00:47 Drug: NS 0.9% 1000 ml Route: IV; Rate: 1000 ml; Site: left antecubital; bb 01:34 Follow up: IV Status: Completed infusion; IV Intake: 950ml bb Intake: 01:34 IV: 950ml; Total: 950ml. bb Outcome: 03:00 Discharge ordered by . [facility] 03:10 Discharged to home ambulatory, with family. 03:10 Condition: stable 03:10 Discharge instructions given to patient, Instructed on discharge instructions, follow up and referral plans. medication usage, Demonstrated understanding of instructions, follow-up care, medications, Prescriptions given X 1. 03:10 Patient left the ED. bb Signatures: Latisha Das, RN RN Sita De Santiago [facility] Rhonda Case Maurice, MD MD 7 Wojciech Adorno RN RN as6
--- NOTE | 2021-09-09 03:02 | EDPHYS ---
Physician Documentation [facility] Name: Heide Harris Age: 50 yrs Sex: Male : 1970 Arrival Date: 09/08/2021 Time: 23:33 Bed 16 Private MD: AMMY Physician Josep Lan HPI: 09/08 23:50 This 50 yrs old Male presents to ER via Ambulatory with complaints of Bloody Stools. mh7 23:50 The patient presents to the emergency department with rectal bleeding, a moderate mh7 amount, bright red blood with bowel movement, 2 times since symptom onset. Onset: The symptoms/episode began/occurred today. Abdominal pain: none is appreciated. Modifying factors: The symptoms are alleviated by nothing, the symptoms are aggravated by nothing. Associated signs and symptoms: Pertinent negatives: anorexia, chest pain, constipation, diarrhea, dizziness at rest, dizziness when standing, fever, shortness of breath, syncope, near-syncope, vomiting. Severity of symptoms: At their worst the symptoms were moderate today, in the emergency department the symptoms have improved moderately. Historical: - Allergies: 23:37 Ciprofloxacin; as6 23:37 Cipro IV; as6 - Home Meds: 23:37 None [Active]; as6 - PMHx: 23:37 None; as6 - PSHx: 23:37 None; as6 - Immunization history:: Client reports receiving the 2nd dose of the Covid vaccine, Crystalsol . - Social history:: Smoking status: Patient denies any tobacco usage or history of. ROS: 23:50 Constitutional: Negative for fever, chills, and weight loss, Eyes: Negative for injury, mh7 pain, redness, and discharge, ENT: Negative for injury, pain, and discharge, Neck: Negative for injury, pain, and swelling, Cardiovascular: Negative for chest pain, palpitations, and edema, Respiratory: Negative for shortness of breath, cough, wheezing, and pleuritic chest pain, Back: Negative for injury and pain, : Negative for injury, bleeding, discharge, and swelling, MS/Extremity: Negative for injury and deformity, Skin: Negative for injury, rash, and discoloration, Neuro: Negative for headache, weakness, numbness, tingling, and seizure, Psych: Negative for depression, anxiety, suicide ideation, homicidal ideation, and hallucinations, Allergy/Immunology: Negative for hives, rash, and allergies, Endocrine: Negative for neck swelling, polydipsia, polyuria, polyphagia, and marked weight changes, Hematologic/Lymphatic: Negative for swollen nodes, abnormal bleeding, and unusual bruising. Exam: 23:50 Constitutional: This is a well developed, well nourished patient who is awake, alert, mh7 and in no acute distress. Head/Face: Normocephalic, atraumatic. Eyes: Pupils equal round and reactive to light, extra-ocular motions intact. Lids and lashes normal. Conjunctiva and sclera are non-icteric and not injected. Cornea within normal limits. Periorbital areas with no swelling, redness, or edema. Neck: Trachea midline, no thyromegaly or masses palpated, and no cervical lymphadenopathy. Supple, full range of motion without nuchal rigidity, or vertebral point tenderness. No Meningismus. Chest/axilla: Normal chest wall appearance and motion. Nontender with no deformity. No lesions are appreciated. Cardiovascular: Regular rate and rhythm with a normal S1 and S2. No gallops, murmurs, or rubs. Normal PMI, no JVD. No pulse deficits. Respiratory: Lungs have equal breath sounds bilaterally, clear to auscultation and percussion. No rales, rhonchi or wheezes noted. No increased work of breathing, no retractions or nasal flaring. Back: No spinal tenderness. No costovertebral tenderness. Full range of motion. Skin: Warm, dry with normal turgor. Normal color with no rashes, no lesions, and no evidence of cellulitis. MS/ Extremity: Pulses equal, no cyanosis. Neurovascular intact. Full, normal range of motion. Neuro: Awake and alert, GCS 15, oriented to person, place, time, and situation. Cranial nerves II-XII grossly intact. Motor strength 5/5 in all extremities. Sensory grossly intact. Cerebellar exam normal. Normal gait. Psych: Awake, alert, with orientation to person, place and time. Behavior, mood, and affect are within normal limits. 23:50 Abdomen/GI: Rectal exam: rectal tone normal, Stool: brown, guaiac negative, mh7 hemorrhoid(s), are not appreciated, mass, is not appreciated, swelling, is not appreciated, tenderness, is not appreciated, fecal impaction, is not appreciated. Vital Signs: 23:36 BP 154 / 91; Pulse 86; Resp 18 S; Temp 98.3(O); Pulse Ox 100% on R/A; Weight 71.21 kg as6 (R); Height 5 ft. 7 in. (170.18 cm) (R); Pain 0/10; 09/09 00:48 BP 153 / 85; Pulse 82; Resp 16; Pulse Ox 97% on R/A; bb 01:35 BP 147 / 85; Pulse 76; Resp 16 S; Pulse Ox 98% on R/A; bb 02:39 BP 150 / 84; Pulse 65; Resp 16 S; Pulse Ox 97% on R/A; bb 03:08 BP 143 / 95; Pulse 66; Resp 16 S; Temp 98.1(TE); Pulse Ox 98% on R/A; bb 09/08 23:36 Body Mass Index 24.59 (71.21 kg, 170.18 cm) as6 MDM: 02:54 Differential diagnosis: gastritis, hemorrhoids, varices, Rectal Bleeding. Data [facility] reviewed: vital signs, old medical records, lab test result(s), CBC, electrolytes. Data interpreted: Pulse oximetry: on room air is 97 %. Interpretation: normal. Counseling: I had a detailed discussion with the patient and/or guardian regarding: the historical points, exam findings, and any diagnostic results supporting the discharge/admit diagnosis, the presence of at least one elevated blood pressure reading (>120/80) during this emergency department visit, lab results. Response to treatment: the patient's symptoms have resolved after treatment, the patient's blood pressure is in an acceptable range, mental status has returned to baseline, the patient no longer shows bradycardia, the patient is not short of breath, the patient is not tachycardic, the patient's pain is gone, the patient's temperature has normalized, the patient is now symptom free, patient is well hydrated. Refusal of service: The patient/guardian displays adequate decision making capability and despite a detailed discussion of alternatives, benefits, risks, and consequences refuses: Admission to the hospital for further work-up and treatment, Transfer. ED course: Feels better, well appearing, NAD, VSS, no focal neurological deficits. No bleeding while in the ER. No complaints. Discussed test results and findings and recommended transfer due to no GI specialist available here. Patient declined transfer and requested to discharged from the ER. Explained possibility of return and/worsening of symptoms which could lead to permanent disability and/or . He verbalized this information as presented. He will follow up with his doctor but return to ER if return of symptoms.. 03:00 Patient medically screened. [facility] 09/09 00:00 Order name: CBC with Diff; Complete Time: 00:50 [facility] 09/09 00:00 Order name: Basic Metabolic Panel; Complete Time: 01:30 [facility] 09/09 00:00 Order name: Protime (+inr); Complete Time: :30 [facility] 09/09 00:00 Order name: Ptt, Activated; Complete Time: :30 [facility] 09/09 00:00 Order name: LFT's; Complete Time: : [facility] 09/09 00:00 Order name: Type And Screen [facility] 09/09 00:00 Order name: EKG; Complete Time: 00:02 [facility] 09/09 00:00 Order name: EKG - Nurse/Tech; Complete Time: 00:44 [facility] 09/09 00:00 Order name: Lipase; Complete Time: 01:30 [facility] 09/09 00:02 Order name: COVID-19 SARS RT PCR (Document "Date of Onset" if Symptomatic) [facility] 09/09 00:01 Order name: Saline Lock; Complete Time: 00:47 Administered Medications: 00:47 Drug: ProTONIX (pantoprazole) 80 mg Route: IVP; Site: left antecubital; bb 01:34 Follow up: Response: No adverse reaction 00:47 Drug: NS 0.9% 1000 ml Route: IV; Rate: 1000 ml; Site: left antecubital; bb 01:34 Follow up: IV Status: Completed infusion; IV Intake: 950ml bb Disposition Summary: 09/09/21 03:00 Discharge Ordered Location: Home [facility] Problem: new [facility] Symptoms: have improved [facility] Condition: Stable [facility] Diagnosis - Rectal Bleeding [facility] Followup: [facility] - With: Private Physician - When: 1 - 2 days - Reason: Worsening of condition, Recheck today's complaints, Continuance of care, Re-evaluation by your physician Followup: [facility] - With: Carl Bauer MD - When: 1 - 2 days - Reason: Worsening of condition, Further diagnostic work-up, Recheck today's complaints Discharge Instructions: - Discharge Summary Sheet [facility] - Rectal Bleeding, [id number] [facility] Forms: - Medication Reconciliation Form [facility] - Thank You Letter [facility] - Antibiotic Education [facility] - Prescription Opioid Use [facility] Prescriptions: - Protonix 40 mg Oral Tablet - take 1 tablet by ORAL route once daily; 30 tablet; Refills: 0, Product [facility] Selection Permitted Signatures: Dispatcher [employer] Latisha Glass, RN RN bb Josep Lan MD MD 7 Wojciech Adorno RN RN as6
[2021-09-09 03:23] VITALS: BP 143/95; TEMP 98.1; O2SAT 98
--- NOTE | 2021-09-09 19:15 | EKG ---
Test Date: 2021-09-09 Test Time: 00:37:11 Laundry Machine Tender: ARCADIO MEASUREMENT RESULTS: Intervals: Rate: 76 IA: 154 QRSD: 100 QT: 404 QTc: 454 [place]: P: 69 IA: 154 QRS: 79 T: 70 INTERPRETIVE STATEMENTS: Normal sinus rhythm Incomplete right bundle branch block Nonspecific T wave abnormality Abnormal ECG Compared to ECG 11/25/2020 19:13:21 Incomplete right bundle-branch block now present T-wave abnormality now present Sinus tachycardia no longer present Electronically Signed On 09-09-21 19:15:01 CDT by Carlos Acharya
== END 2021-09-09 03:10 | disposition home or self-care (01) ==
LOC: ER 23:30
DX: K62.5 Hemorrhage of anus and rectum (principal); Z88.1 Allergy status to other antibiotic agents
CPT/HCPCS: 96361; 93005; 85025; 80048; 36415; 86900; 86850; 85610; 86870; 86901; 80076; 85730; 83690; 96374; 99284; U0003; C9113; J7030